=== PATIENT | male | born 1950 | race Caucasian/White ===

== ENCOUNTER 2016-07-31 23:01 | Inpatient (IN) | payer OTHER, MEDICARE ==
[~2016-07-31] VITALS: Ht 172.7 cm; Wt 111.1 kg
[~2016-07-31 23:01] MED LIST: ASPIRIN EC81 M1 PO; COLACE100 M1 PO; CYMBALTA60 M1 PO; DIGOXIN250 MCG PO; HUMULIN 70100 UNIT/2 SC; LASIX40 M1 PO; LEVOTHYROXINE100 MC1 PO; LEVOTHYROXINE88 MCG PO; METFORMIN HCL1000 M2 PO; NEURONTIN100 M1 PO; PRAVACHOL80 M1 PO; PRINIVIL5 M1 PO; SENNA8.6 M3 PO; TOPROL XL200 M1 PO; XARELTO20 M2 PO
--- NOTE | 2016-07-31 23:41 | ED AMS/SEIZURE/WEAK/DIZZY ---
History of Present Illness General Chief Complaint: General Adult Stated Complaint: BIBA FOR EVAL GENERAL WEAKNESS Source: patient Exam Limitations: no limitations Vital Signs & Intake/Output Vital Signs & Intake/Output Vital Signs Date Time Temp Pulse Resp B/P Pulse O2 O2 Flow FiO2 Ox Delivery Rate 07/31 2321 96.8 74 18 133/72 100 Room Air ED Intake and Output 08/01 0000 07/31 1200 Intake Total 0 Output Total Balance 0 Intake, Oral 0 Patient 185 lb Weight Allergies Coded Allergies: NO KNOWN ALLERGIES (08/01/16) Reconcile Medications Aspirin (Ecotrin*) 81 MG TABLET.DR 1 TAB PO DAILY HEART HEALTH (Reported) Atorvastatin Calcium 80 MG TABLET 80 MG PO 1700 Hyperlipidemia Digoxin 250 MCG TABLET 1 TAB PO DAILY HEART (Reported) Docusate Sodium (Colace) 100 MG CAPSULE 1 CAP PO DAILY GI (Reported) Duloxetine HCl (Cymbalta) 60 MG CAPSULE.DR 1 CAP PO DAILY MENTAL HEALTH ( Reported) Furosemide (Lasix) 40 MG TABLET 1 TAB PO DAILY DIURETIC (Reported) Gabapentin (Neurontin) 100 MG CAPSULE 1 CAP PO TID NEUROPATHY (Reported) Insulin Aspart (Novolog) 100 UNIT/ML VIAL 0 UNITS SC TIDAC/HS blood sugars BEFORE MEALS Blood Insulin Sugar Units <80 0 81-150 10 151-200 12 201-250 14 251-300 16 301-350 18 351-400 20 >400 22 units and Call Doctor AT BEDTIME Blood Insulin Sugar Units <80 0 81-100 0 100 - 200 0 201-250 0 251-300 2 301-350 3 351-400 4 >400 5 units and Call Doctor Insulin Detemir (Levemir) 100 UNIT/ML VIAL 32 UNITS SC BID blood sugars Levothyroxine Sodium 100 MCG TABLET 1 TAB PO DAILY AC THYROID (Reported) Levothyroxine Sodium 88 MCG TABLET 1 TAB PO DAILY AC THYROID (Reported) Lisinopril (Prinivil) 5 MG TABLET 1 TAB PO DAILY BP (Reported) Metoprolol Succinate (Toprol XL) 200 MG TAB.ER.24H 1.5 TAB PO DAILY HEART ( Reported) Rivaroxaban (Xarelto) 20 MG TABLET 1 TAB PO DAILY BLOOD THINNER (Reported) with food Saxagliptin HCl/Metformin HCl (Kombiglyze XR 5-1,000 MG Tab) 5 MG-1,000 MG TBMP.24HR 1 TAB PO DAILY DIABETES MELLITUS (Reported) Sennosides (Senna) 8.6 MG TABLET 1 TAB PO DAILY CONSTIPATION (Reported) Triage Note: PT BIBA FROM HOME WITH COMPLAINTS OF WEAKNESS AND NAUSEA. PER PT, HE EXPERIENCED NAUSEA BEFORE DINNER AND SOME DRY HEAVE. PT STATES THAT HE DECIDED TO GO TO SLEEP AND WHEN HE WOKE UP HE HAD SOME NUMBNESS TO THE LEFT SIDE OF FACE, L ARMS AND L LEGS. PT HAS HISTORY OF STROKE. NO FACIAL DROOP NOTED, NO DRIFT NOTED. PT'S SPEECH IS SLIGHTLY SLURRED FROM PREVIOUS STROKE, PT STATES THIS IS BASELINE. PT HAS WOUND TO LEFT PONTER FINGER THAT APPEARS BLACK IN COLOR AND DISCOLORATION TO BLE, PT STATES THIS IS FROM HIS DIABETES. PT ALSO RELAYS THAT HE HAD A HARD TIME WALKING TO AMBULANCE AND HE IS USUALLY INDEPENDENT AND AMBULATORY AT BASELINE. Triage Nurses Notes Reviewed? yes HPI: Patient presents for evaluation of sudden onset of spinning dizziness that occurred at about 645 this evening while at home having dinner. He states he had an associated nausea and some mild vomiting. He states he went over to the couch and then managed to fall asleep for about an hour. He then got up at about 840 and noted that upon awakening his left arm left leg and left side of his face felt like it had fallen asleep. At that point he was too weak to stand or ambulate. He has a history of a prior CVA and diabetes. He also takes XARALTO for atrial fibrillation. Past History Travel History Traveled to [place] past 21 day No Medical History Any Pertinent Medical History? see below for history Neurological: CVA EENT: NONE Cardiovascular: AFIB, hypertension, hyperlipidemia Respiratory: NONE Gastrointestinal: NONE Hepatic: NONE Renal: NONE Musculoskeletal: NONE Psychiatric: NONE Endocrine: diabetes, hypothyroidism Blood Disorders: NONE Cancer(s): NONE PERSONAL CARE AIDE/Reproductive: NONE Surgical History Surgical History: N Psychosocial History What is your primary language Bruneian Tobacco Use: Quit >30 days ago ETOH Use: denies use Illicit Drug Use: denies illicit drug use Family History Hx Contributory? No Review of Systems Review of Systems Constitutional: Reports: no symptoms. EENTM: Reports: no symptoms. Respiratory: Reports: no symptoms. Cardiovascular: Reports: no symptoms. GI: Reports: no symptoms. Genitourinary: Reports: no symptoms. Musculoskeletal: Reports: no symptoms. Skin: Reports: no symptoms. Neurological/Psychological: Reports: no symptoms. Hematologic/Endocrine: Reports: no symptoms. Immunologic/Allergic: Reports: no symptoms. All Other Systems: Reviewed and Negative Physical Exam Physical Exam General Appearance: see below Comments: Gen.: Well-nourished, well-developed, no acute respiratory distress. Head: Normocephalic, atraumatic. Eyes: Normal inspection bilaterally, PERRLA, EOMI, rotational nystagmus noted on left gaze, no visual field deficits Ears: Normal inspection bilaterally Nose: Normal inspection Throat/mouth : Moist mucosa Neck: Supple, full range of motion, no goiter, no carotid bruits Heart: Slightly irregular rate and rhythm, no murmurs rubs or gallops Lungs: Clear to auscultation bilaterally with normal air entry Chest: Nontender Back: Normal range of motion Abdomen: Soft, nontender, nondistended, normal bowel sounds Extremities: Normal range of motion grossly, equal radial pulses, no cyanosis clubbing or edema Neurologic: Cranial nerves 2 through 12 intact, speech is mildly dysarthric ( patient is edentulous), dysmetria of the left arm and leg, facial sensation intact. Skin: warm and dry Psychiatric: Calm, cooperative, no apparent delusions or hallucinations Core Measures ACS in differential dx? No CVA/TIA Diagnosis: Yes Severe Sepsis Present: No Septic Shock Present: No Bedside Dysphagia Screen Bedside Swallow Eval Done: Yes Result of Evaluation: Pass Progress Differential Diagnosis: CVA/stroke, vertigo Plan of Care: Orders Procedure Date/time Status Telemetry/General Production Laborer 08/01 0025 Active PARTIAL THROMBOPLASTIN TIME 08/01 2339 Complete PROTHROMBIN TIME 08/01 2339 Complete COMPREHENSIVE METABOLIC PANEL 08/01 2339 Complete CBC WITHOUT DIFFERENTIAL 08/01 2339 Complete EKG 08/01 2339 Active Laboratory Tests 08/01/16 0012: Anion Gap 11, Estimated GFR > 60, BUN/Creatinine Ratio 20.0, Glucose 351 H, Calcium 9.1, Total Bilirubin 0.7, AST 71 H, ALT 59, Alkaline Phosphatase 96, Total Protein 7.8, Albumin 3.5, Globulin 4.3 H, Albumin/Globulin Ratio 0.8 L, PT 16.2 H, INR 1.55 H, APTT 37, CBC w Diff NO MAN DIFF REQ, RBC 5.36, MCV 86.3 , MCH 28.8, RDW 15.1 H, MPV 8.2, Gran % 78.8 H, Lymphocytes % 15.8 L, Monocytes % 5.0, Eosinophils % 0.1, Basophils % 0.3, Absolute Granulocytes 6.7 H, Absolute Lymphocytes 1.3, Absolute Monocytes 0.4, Absolute Eosinophils 0, Absolute Basophils 0, PUBS MCHC 33.3 Diagnostic Imaging: Discussed w/RAD: CT Scan. Initial ED EKG: rate (63), AFIB Prior EKG: changed (nsr on prior) Rhythm Strip: atrial fibrillation Departure Departure Disposition: STILL A PATIENT Condition: Stable Clinical Impression Primary Impression: CVA (cerebral vascular accident) Qualifiers: CVA mechanism: embolism Precerebral and cerebral artery: unspecified cerebral artery Qualified Code: I63.40 - Cerebral infarction due to embolism of unspecified cerebral artery Referrals: IMAN MARQUEZ MD (PCP/Family) Departure Forms: Customer Survey General Discharge Information Prescriptions: Current Visit Scripts Atorvastatin Calcium 80 MG PO 1700 #60 TAB Insulin Aspart (Novolog) 0 UNITS SC TIDAC/HS #10 VIAL BEFORE MEALS Blood Insulin Sugar Units <80 0 81-150 10 151-200 12 201-250 14 251-300 16 301-350 18 351-400 20 >400 22 units and Call Doctor AT BEDTIME Blood Insulin Sugar Units <80 0 81-100 0 100 - 200 0 201-250 0 251-300 2 301-350 3 351-400 4 >400 5 units and Call Doctor Insulin Detemir (Levemir) 32 UNITS SC BID #30 VIAL Admission Note Spoke With: MARIBEL HUNTER MD Documentation of Exam: Documentation of any treatments & extenuating circumstances including Concerns Regarding Discharge (functional status, medication knowledge or non-compliance, living conditions, etc.) that warrant an admission rather than observation: Patient appears to have suffered a left sided stroke likely as a result of a paroxysm of atrial fibrillation despite current treatment with XARALTO. The patient is at considerable risk of long-term disability based on his presentation (patient has discoordination of his left arm and leg). As a result of a prior CVA he has lost considerable use of his right hand and arm (his dominant extremity). He is now losing the coordination of his left side as well. I feel he can not be treated as an outpatient given the overall disability of his current CVA. I feel he would have great difficulty in compliance with outpatient treatment and would be at great risk of falling with subsequent injury. I feel he now requires hospitalization for continuous cardiac monitoring given the presence of atrial fibrillation along with neurology consultation and medication adjustments. Any potentially reversible causes of CVA should also be investigated and treated accordingly. Given the patient's discoordination I feel he also should have a physical therapy consultation. I believe it is very likely the patient will require short-term rehabilitation. I feel he therefore will require a multiple day hospitalization.
[2016-08-01 00:22] LABS: ABSOLUTE BASOPHIL COUNT 0 /CUMM (0.0-0.2); ABSOLUTE EOSINOPHIL COUNT 0 /CUMM (0.0-0.7); ABSOLUTE GRANULOCYTE CT 6.7 /CUMM (1.4-6.5); ABSOLUTE LYMPH COUNT 1.3 /CUMM (1.2-3.4); ABSOLUTE MONOCYTE COUNT 0.4 /CUMM (0.10-0.60); BASOPHIL % 0.3 % (0.0-2.0); EOSINOPHIL % 0.1 % (0-5); HEMATOCRIT 46.3 % (42-52); MEAN CORPUSCULAR HGB 28.8 PG (27.0-31.0); MEAN CORPUSCULAR HGB CONC 33.3 G/DL (33.0-37.0); MEAN CORPUSCULAR VOLUME 86.3 FL (80.0-94.0); MEAN PLATELET VOLUME 8.2 FL (7.4-10.4); PLATELET COUNT 229 /CUMM (130-400); RBC DISTRIBUTION WIDTH 15.1 % (11.5-14.5); RED BLOOD CELL CT 5.36 /CUMM (4.70-6.10); WHITE BLOOD CELL COUNT 8.4 /CUMM (4.8-10.8)
[2016-08-01 00:23] LABS: GRANULOCYTE % 78.8 % (42.2-75.2)
[2016-08-01 00:31] LABS: PT 16.2 SEC (9.4-12.5); PTT 37 SEC (25-37)
--- NOTE | 2016-08-01 01:02 | CT SCAN REPORT ---
EXAMINATION: CT HEAD WITHOUT CONTRAST CLINICAL INFORMATION: Left-sided weakness. Numbness. History of prior stroke. COMPARISON: CT head 02/21/2015 TECHNIQUE: Contiguous axial imaging was performed from the skull base to vertex without intravenous administration of contrast. DLP: 672.25 mGy-cm FINDINGS: There is an old infarct with chronic encephalomalacia in the left frontal lobe. This is unchanged since prior exam. There is no evidence of acute intracranial hemorrhage or territorial infarction. No abnormal mass effect or midline shift is seen. Bashir to white matter differentiation is well preserved. No extra-axial fluid collections are identified. There is atrophy with prominence of the ventricles and the sulci and hypodensity of the periventricular white matter due to chronic small vessel ischemic disease. There is vascular calcifications of the internal carotid arteries bilaterally. The osseous structures and soft tissues are normal. Retention cyst inferior left maxillary sinus. Mastoid air cells and middle ear cavities are normally aerated. IMPRESSION: No acute intracranial pathology. Chronic left frontal lobe infarct.
--- NOTE | 2016-08-01 01:34 | History & Physical ---
See Addendum YADI CORRALES,RUBIO 08/01/16 0134: General Information and HPI MD Statement: I have seen and personally examined ASTER MCCURDY and documented this H&P. The patient is a 66 year old M who presented with a patient stated chief complaint of [left sided weakness]. Source of Information: patient Exam Limitations: no limitations History of Present Illness: Patient is a 66 year old male with a PMH of CVA in 2013, atrial fibrillation on Xarelto, hypertension, hyperlipidemia, diabetes, hypothyroidism who was BIBA after he noticed left sided numbness and weakness of the arm and leg and left side facial droop. Patient reports earlier in the day at around noon he started to feel dizzy and feeling the room was spinning around his head, also felt hot flashes and feeling warm and sweaty, accompanied by mild nausea and one episode of having dry heaves. Patient slept for a couple hours, whem woke up noticed the left side of the body was numb and weak including face, arm and leg. Patient asked help from his mother (he lives with her), who called 911 and brought him to the ED. patient also reports that he feels when he moves his left arm towards the face it hits his face before he anticipates it, as if he miscalsulated the distance. Patient also reports that his his speech is slurred , he denies having difficulty finding words. Patient denies loss of consciousness, fall, changes in the vision, headache, chest pain, palpitation, shortness of breath. Patient reports he has been feeling less stable during the past couple of weeks and has a wobbly gait, denies losing balance and sweating to the sides. Of note, patient has a history of CVA in September 2013 after which she reports having slurred speech and right sided arm weakness. His his speech became completely normal, however he still has residual weakness on the right arm. Allergies/Medications Allergies: Coded Allergies: NO KNOWN ALLERGIES (08/01/16) Home Med list Aspirin (Ecotrin*) 81 MG TABLET.DR 1 TAB PO DAILY HEART HEALTH (Reported) Digoxin 250 MCG TABLET 1 TAB PO DAILY HEART (Reported) Docusate Sodium (Colace) 100 MG CAPSULE 1 CAP PO DAILY GI (Reported) Duloxetine HCl (Cymbalta) 60 MG CAPSULE.DR 1 CAP PO DAILY MENTAL HEALTH ( Reported) Furosemide (Lasix) 40 MG TABLET 1 TAB PO DAILY DIURETIC (Reported) Gabapentin (Neurontin) 100 MG CAPSULE 1 CAP PO TID NEUROPATHY (Reported) Insulin NPH Hum/Reg Insulin Hm (Humulin 70/30 Kwikpen) 100 UNIT/ML (70-30) INSULN.PEN 100 U SC BID DIABETES (Reported) Levothyroxine Sodium 100 MCG TABLET 1 TAB PO DAILY AC THYROID (Reported) Levothyroxine Sodium 88 MCG TABLET 1 TAB PO DAILY AC THYROID (Reported) Lisinopril (Prinivil) 5 MG TABLET 1 TAB PO DAILY BP (Reported) Metformin HCl (Metformin HCl ER) 1,000 MG TAB.ER.24 1 TAB PO DAILY DIABETES ( Reported) Metoprolol Succinate (Toprol XL) 200 MG TAB.ER.24H 1.5 TAB PO DAILY HEART ( Reported) Pravastatin Sodium (Pravachol) 80 MG TABLET 1 TAB PO DAILY CHOLESTEROL ( Reported) Rivaroxaban (Xarelto) 20 MG TABLET 1 TAB PO DAILY BLOOD THINNER (Reported) with food Sennosides (Senna) (Unknown Strength) TABLET (Unknown Dose) PO DAILY GI ( Reported) Past History Travel History Traveled to [place] past 21 day No Medical History Neurological: CVA EENT: NONE Cardiovascular: AFIB, hypertension, hyperlipidemia Respiratory: NONE Gastrointestinal: NONE Hepatic: NONE Renal: NONE Musculoskeletal: NONE Psychiatric: NONE Endocrine: diabetes, hypothyroidism Blood Disorders: NONE Cancer(s): NONE STAFF ANESTHETIST/Reproductive: NONE Surgical History Surgical History: N Past Family/Social History Family History Relations & Conditions if any MOTHER FH: COPD (chronic obstructive pulmonary disease) FATHER FH: diabetes mellitus FH: HTN (hypertension) Psychosocial History Smoking Status: Never Smoked ETOH Use: denies use, occasional use Illicit Drug Use: denies illicit drug use Functional Ability ADLs Independent: dressing, eating, toileting, bathing. Ambulation: independent Review of Systems Review of Systems Constitutional: Reports: weakness. Denies: chills, diaphoresis, fever. EENTM: Reports: ear pain (left side). Denies: double vision, visual changes, ear discharge, hearing changes, throat pain. Cardiovascular: Denies: chest pain, palpitations, peripheral edema, syncope. Respiratory: Denies: cough, short of breath, sputum production. GI: Reports: nausea (dry heaves), changes in stool (more firm stool past 2 weeks). Denies: abdominal pain, bloody stool, vomiting. Genitourinary: Reports: frequency. Denies: dysuria, hematuria, urgency. Musculoskeletal: Denies: back pain, joint pain. Skin: Reports: dryness, lesions (lower leg skin discolortion). Neurological/Psychological: Reports: numbness, paresthesia, weakness. Denies: headache, tremors. Hematologic/Endocrine: Reports: polyuria, polydipsia. Denies: bruising, bleeding. Exam & Diagnostic Data Last 24 Hrs of Vital Signs/I&O Vital Signs Date Time Temp Pulse Resp B/P Pulse O2 O2 Flow FiO2 Ox Delivery Rate 08/01 0457 98.1 67 20 128/60 97 Room Air 08/01 0347 97.2 72 16 138/72 98 Room Air 08/01 0248 97.0 76 20 134/71 99 Room Air 07/31 2321 96.8 74 18 133/72 100 Room Air Intake & Output 08/01 0800 08/01 0000 07/31 1600 Intake Total 0 Output Total Balance 0 Intake, Oral 0 Patient 83.915 kg Weight Physical Exam General Appearance Alert, Oriented X3, Cooperative, No Acute Distress Skin skin hyperkeratosis and dryness generally. there are also hyperpigmentations of venous stasis on anterior aspects of both lower legs., there is an area of necrotic skin lesion at the tip of the left index finger HEENT Atraumatic, EOMI, Mucous Membr. moist/pink, pupils equal and reactive to light Neck Supple, No JVD, +2 Carotid Pulse wo Bruit Cardiovascular Normal S1, Normal S2, No Murmurs, irregular Lungs Clear to Auscultation, Normal Air Movement Abdomen Normal Bowel Sounds, Soft, No Tenderness Neurological Sensation Intact, Cranial Nerves 3-12 NL, there is 4/5 forces on the right upper extremity and 5/5 strength on the left upper extremity. forces on the lower extremities: 5/5 on the right side and 4/5 on the left side., finger to nose test on the left side reveals dysmetria. heel to murguia test is normal on both sides, pronator drift positive on the left side., fluent and comprehensible speech., patient passed the bedside swallow evaluation Extremities No Edema, Normal Pulses, No Tenderness/Swelling Vascular Pulses Symmetrical Last 24 Hrs of Labs/Rashi: Laboratory Tests 08/01/16 0012: Anion Gap 11, Estimated GFR > 60, BUN/Creatinine Ratio 20.0, Glucose 351 H, Hemoglobin A1c Pending, Calcium 9.1, Magnesium 3.1 H, Total Bilirubin 0.7, AST 71 H, ALT 59, Alkaline Phosphatase 96, Troponin I < 0.01, Total Protein 7.8, Albumin 3.5, Globulin 4.3 H, Albumin/Globulin Ratio 0.8 L, TSH 1.770, Free T4 1.89, PT 16.2 H, INR 1.55 H, APTT 37, CBC w Diff NO MAN DIFF REQ, RBC 5.36, MCV 86.3, MCH 28.8, RDW 15.1 H, MPV 8.2, Gran % 78.8 H, Lymphocytes % 15.8 L, Monocytes % 5.0, Eosinophils % 0.1, Basophils % 0.3, Absolute Granulocytes 6.7 H, Absolute Lymphocytes 1.3, Absolute Monocytes 0.4, Absolute Eosinophils 0, Absolute Basophils 0, PUBS MCHC 33.3 Assessment/Plan Assessment: Patient is a 66-year-old gentleman with a PMH of CVA in 2013 with residual weakness of the right arm, atrial fibrillation on Xarelto, hypertension, hyperlipidemia, diabetes, hypothyroidism who is BIBA after feeling weakness and numbness on the left side of the body that started around 8:40 PM on 07/31/2016, accompanied by unsteady gait and impaired coordination on the left arm. CT scan of the head in the ED was negative for intracranial pathology. However and exam patient has dystaxic and assess and dysmetria on the left upper extremity as well as new weakness in the left lower extremity. No dysarthria noted. PLEASE CONFIRM CMR IN AM, patient unsure about the those, pharmacy at [facility] need to be called. Problem list and plan: Possible ischemis stroke or a TIA * Neurochecks every 4-6 hours * Telemetry monitoring * Continue aspirin * High-dose statin, atorvastatin 40 mg * Metoprolol half of his home dose, Hold antihypertensives (goal BP 200/105, current BP 128/60, started gentle hydration with normal saline 75 mL per hour) * Carotid Doppler ultrasound in the morning * Swallow evaluation in the morning * OT and PT consult * Neurology consult * Echocardiogram * MRI of the brain Atrial fibrillation no history of [place]. * check troponin * echocardiogram * consider cardiology consult * continue Xarelto, continue metoprolol at half dose * continue digoxin, will check digoxin level Diabetes On Insulin Humulin 80 units of 70/30 BID, Metformin, Toujeo solostar (28 units at bedtime), Kombiglyze * Started novolog insulin SS * levemir 20 units at bedtime * HbA1C * Endocrinology consult placed for am Hypothyroidism * states that he is on 0.1 and 0.088 levothyroxine, please confirm this in the morning. * check TSH Diet * Patient passed bedside swallow eval * Consistent carbohydrate 3 Pain * mild pain pathway DVT prophylaxis * Patient is on Xarelto, continued at home dose FULL CODE As Ranked By This Provider Problem List: 1. CVA (cerebral vascular accident) Qualifiers CVA mechanism: embolism Precerebral and cerebral artery: unspecified cerebral artery Qualified Code: I63.40 - Cerebral infarction due to embolism of unspecified cerebral artery 2. TIA (transient ischemic attack) Core Measures/Miscellaneous Acute Coronary Syndrome ACS Diagnosis: No Cerebrovascular Accident CVA/TIA Diagnosis: Yes Congestive Heart Failure CHF Diagnosis: No Venous Thromboembolism VTE Risk Factors: Acute medical illness, Age > 40 No [facility] VTE prophylaxis d/t: No contraindications No VTE Pharm Prophylaxis d/t: No contraindications VTE Diagnosis: No VTE Type: NONE VTE Confirmed by (Test): NONE Severe Sepsis Severe Sepsis Present: No Septic Shock Septic Shock Present: No Miscellaneous Documentation Attending Case Discussed With: MARIBEL HUNTER MD Primary Care Physician: IMAN MARQUEZ MD Patient sees these Specialists Dr. Alanis, neurologist (have not followed up for a long time) Dr. Ross, cardiology Level of Patient Care: Telemetry VICKY ORO 08/01/16 0329: Resident Review Statement Resident Statement: examined this patient, discussed with equine intern, agreed with equine intern, reviewed EMR data (avail), discussed with nursing, reviewed images, amended to note Other Findings: This is a 66 year old male with past medical history of hypertension, hyperlipidemia, atrial fibrillation on Xarelto, diabetes mellitus, hypothyroidism, CVA 2013 with residual right upper arm weakness. Who was BIBA after he noticed left sided weakness of the arm and leg and left side facial droop. Patient also reports before his symptoms start that he felt dizzy and he felt that the room was spinning around patient stated that it was around 6:45 PM after that he went to take a nap for 1-2 hour and when he wake up around 8 8:30 PM he started to complain of left-sided weakness and numbness starting from his head up to his left lower extremity. Patient reports missing his Xarelto dose. On physical examination patient had positive pronation drift. Patient passed the bedside swallowing evaluation. Physical examination, imaging and Lab as above. Assessment: -Ischemic CVA/TIA: Recommend the patient underlying history of atrial fibrillation and old CVA, with his current presentation, patient most likely has another CVA versus TIA patient will need further evaluation by neurologist and MRI imaging. Plan: -Admit patient to telemetry floor -Vitals every shift, NIH Q4hr, fall precaution -Continue aspirin and Xarelto -MRI of the head, neurology consultation -Echocardiogram, carotid ultrasound -Check digoxin level, TSH, free T4 -Start the patient on 75 mL per hour of normal saline -Allow permissive hypertension, hold the patient home medication of Lasix will restart the patient metoprolol with half the dose tomorrow. -Accu-Chek, diabetic diet, insulin sliding scale +20 units of Levemir QPM. -Swallowing evaluation, physical therapy consultation -Please confirm the patient home medication -Pain pathway -DVT Prophylaxis on Xarelto -Full code DALEMARIBEL AGUIRRE 08/01/16 0525: Attending MD Review Statement Attending Statement Attending MD Statement: examined this patient, discuss w/resident/PA/CREDIT REPORTING CLERK, agreed w/resident/PA/CREDIT REPORTING CLERK, reviewed EMR data (avail), reviewed images, amended to note Attending Assessment/Plan: CC: Left face, hand, leg numbness PMH: CVA, A. fib on Xeralto, HTN, HLD, DM, hypothyroidism Patient describes an episode of dizziness, vertigo before his dinner, he ate his dinner and took a nap on the couch for one and half hours, after that he woke up with numbness on left side of the face, left upper and lower extremity. Patient described this as that part of the body is asleep, so he called EMS. He denies any headache, LOC, palpitations, chest pain, shortness of breath, cough, facial droop, dropping things from his hand. When EMS came to pick him up, he could not stand properly and was wobbly and unstable gait. He also noticed lack of coordination in his left hand. Patient has some slurred speech, right upper extremity residual weakness from his previous stroke. Denies any recent cardiac workup, he was admitted for stroke and sent to [facility]. Vitals: Afebrile, pulse 70s, RR 18, blood pressure 133/72, saturating well on room air. On examination: a O 3, comprehension intact follows instruction, no acute distress, neck supple, no JVD, no lymphadenopathy. He has diffuse chronic skin changes or dry skin throughout and stasis dermatitis bilateral lower extremity. Neurological exam: Pupils equal round reactive bilaterally, cranial nerves intact, no facial droop. ?Pronator drift on left side, strength otherwise 5/5 left upper extremity and left lower extremity, 4/5 right upper extremity. Sensation intact, past-pointing on left upper extremity, when tried to stand up patient could not, the fused secondary to weakness on left lower extremity. Gait could not be assessed. CVS: S1-S2, irregular. RS: Clear to auscultate bilaterally. Abdomen: Obese, soft, NT, bowel sounds present. No obvious pedal edema. Labs: C BC, BMP unremarkable AST 71, troponin less than 0.01, INR 1.55. CT head:No acute intracranial pathology. Chronic left frontal lobe infarct. EKG: A. fib, A and P #1 left-sided numbness: Suspected CVA, ?stroke. Patient has multiple comorbidities and history of previous CVA, A. fib. Patient states that he may have skipped a dose of Xeralto yesterday. ?pronator drift on the left side, past pointing on the left side. Sensation intact. Given that patient on anticoagulation, and numbness happened in his sleep he is not a candidate for thrombolysis, consult on-call neurology about stroke, neurology was not informed from ER. Admit on telemetry, Continue permissive hypertension, hold antihypertensive, decreased the dose of metoprolol for now, continue gentle hydration, aspirin, atorvastatin. Neurochecks every 4-6 hours, Bedside swallow evaluation now, official swallow evaluation in a.m., MRI tomorrow a.m., carotid Doppler, 2-D echo, telemetry monitoring, OT PT evaluation. #2 DM: Insulin-dependent patient takes 80 units 70/30 twice a day and 28 units long-acting insulin at bedtime, continue sliding scale insulin, 20 units subcutaneous Levemir now, consult endocrine in a.m. #3 A. fib: Rate controlled, continues Xerato and metoprolol at a lower dose for permissive hypertension, continue digoxin, check digoxin level. #4 hypothyroidism: Patient on 2 different doses of Synthroid, needs to confirm this in a.m. 100 g versus 88 g. #5 DVT prophylaxis: patient on Xeralto
[2016-08-01 04:57] VITALS: BP 128/60
--- NOTE | 2016-08-01 05:26 | Admission Certification ---
Admission Certification Certification Statement - As attending physician, I certify that at the time of - admission, based on clinical presentation, severity of - symptoms, need for further diagnostic testing and - therapeutic interventions, and risk of adverse outcomes - without in-hospital treatment, in my clinical assessment, - this patient requires an acute hospital stay for a minimum - of two nights or longer. I have also considered psychsocial - factors such as support system, advanced age, financial - issues, cognitive issues, and failed out-patient treatments, - past re-admission history, safety of patient, and lack of - compliance as applicable. Specific rationale supporting this admission is: Suspected CVA
--- NOTE | 2016-08-01 07:00 | Event Note ---
Event Note Event Note: We put a consult neurology at 5 am this morning, through answering service for the optical effects line up person neurology; [phone]. I was told by the batch plant operator that Dr. Chadwick ( and not Dr. Ag, whose name is appearing in our tracker) is the neurology optical effects line up person today. I called the number again to talk with Dr. Chadwick for the patient, I was provided with Dr. Reginald Chadwick's office number [phone], the orthopedic assistant attempted to connect me to Dr. Chadwick, but Dr. Chadwick told her that he is not covering for [employer] and did not milk pickup truck driver the phone. We checked [facility] intranet for the schedule for optical effects line up person neurology as well and there was no information there. Morning team is made aware of the situation.
[2016-08-01 08:30] LABS: ABSOLUTE BASOPHIL COUNT 0 /CUMM (0.0-0.2); ABSOLUTE EOSINOPHIL COUNT 0 /CUMM (0.0-0.7); ABSOLUTE GRANULOCYTE CT 7.2 /CUMM (1.4-6.5); ABSOLUTE LYMPH COUNT 2.2 /CUMM (1.2-3.4); ABSOLUTE MONOCYTE COUNT 0.6 /CUMM (0.10-0.60); BASOPHIL % 0.3 % (0.0-2.0); EOSINOPHIL % 0.2 % (0-5); GRANULOCYTE % 71.6 % (42.2-75.2); HEMATOCRIT 42.3 % (42-52); MEAN CORPUSCULAR HGB 28.5 PG (27.0-31.0); MEAN CORPUSCULAR HGB CONC 33.5 G/DL (33.0-37.0); MEAN CORPUSCULAR VOLUME 85.1 FL (80.0-94.0); MEAN PLATELET VOLUME 8.4 FL (7.4-10.4); PLATELET COUNT 230 /CUMM (130-400); RBC DISTRIBUTION WIDTH 15.3 % (11.5-14.5); RED BLOOD CELL CT 4.97 /CUMM (4.70-6.10); WHITE BLOOD CELL COUNT 10.1 /CUMM (4.8-10.8)
[2016-08-01 08:57] VITALS: BP 138/68
--- NOTE | 2016-08-01 12:30 | Cons- Endocrinology ---
General Information and HPI Consulting Request Date of Consult: 08/01/16 Requested By: medical team Reason for Consult: management of DM type 2 Source of Information: patient, old records Exam Limitations: no limitations History of Present Illness: Patient is a 66 year old male with a PMH of CVA in 2013, atrial fibrillation on Xarelto, hypertension, hyperlipidemia, diabetes type 2 noncompliance with recent of HbA1c of > 12%, hypothyroidism who was BIBA after he noticed left sided numbness and weakness of the arm and leg. His glucose level has been 351, 294, 296 and 304. At home, he was on Toujeo 28 units daily at bedtime, Humulin 70/30 mix 80 units twice a day with breakfast and with dinner. In addition, he was on Komiglyze. However, he wasn't compliance with Humulin 70/30 and diet. Allergies/Medications Allergies: Coded Allergies: NO KNOWN ALLERGIES (08/01/16) Home Med List: Aspirin (Ecotrin*) 81 MG TABLET.DR 1 TAB PO DAILY HEART HEALTH (Reported) Digoxin 250 MCG TABLET 1 TAB PO DAILY HEART (Reported) Docusate Sodium (Colace) 100 MG CAPSULE 1 CAP PO DAILY GI (Reported) Duloxetine HCl (Cymbalta) 60 MG CAPSULE.DR 1 CAP PO DAILY MENTAL HEALTH ( Reported) Furosemide (Lasix) 40 MG TABLET 1 TAB PO DAILY DIURETIC (Reported) Gabapentin (Neurontin) 100 MG CAPSULE 1 CAP PO TID NEUROPATHY (Reported) Insulin NPH Hum/Reg Insulin Hm (Humulin 70/30 Kwikpen) 100 UNIT/ML (70-30) INSULN.PEN 100 U SC BID DIABETES (Reported) Levothyroxine Sodium 100 MCG TABLET 1 TAB PO DAILY AC THYROID (Reported) Levothyroxine Sodium 88 MCG TABLET 1 TAB PO DAILY AC THYROID (Reported) Lisinopril (Prinivil) 5 MG TABLET 1 TAB PO DAILY BP (Reported) Metformin HCl (Metformin HCl ER) 1,000 MG TAB.ER.24 1 TAB PO DAILY DIABETES ( Reported) Metoprolol Succinate (Toprol XL) 200 MG TAB.ER.24H 1.5 TAB PO DAILY HEART ( Reported) Pravastatin Sodium (Pravachol) 80 MG TABLET 1 TAB PO DAILY CHOLESTEROL ( Reported) Rivaroxaban (Xarelto) 20 MG TABLET 1 TAB PO DAILY BLOOD THINNER (Reported) with food Sennosides (Senna) (Unknown Strength) TABLET (Unknown Dose) PO DAILY GI ( Reported) Review of Systems Review of Systems Constitutional: Reports: see HPI. Cardiovascular: Denies: chest pain. Respiratory: Denies: short of breath. GI: Denies: abdominal pain. Neurological/Psychological: Reports: weakness (left sided body). Past History Travel History Traveled to [place] past 21 day No Medical History Neurological: CVA EENT: NONE Cardiovascular: AFIB, hypertension, hyperlipidemia Respiratory: obstructive sleep apnea Gastrointestinal: NONE Hepatic: NONE Renal: NONE Musculoskeletal: NONE Psychiatric: NONE Endocrine: diabetes, hypothyroidism Blood Disorders: NONE Cancer(s): NONE CAVALRY SCOUT/Reproductive: NONE Surgical History Surgical History: none Family History Relations & Conditions If Any: MOTHER FH: COPD (chronic obstructive pulmonary disease) FATHER FH: diabetes mellitus FH: HTN (hypertension) Psychosocial History Where Do You Live? Home Services at Home: None Smoking Status: Never Smoked ETOH Use: denies use, occasional use Illicit Drug Use: denies illicit drug use Functional Ability ADLs Independent: dressing, eating, toileting, bathing. Ambulation: independent Exam & Diagnostic Data Last 24 Hrs of Vital Signs/I&O Vital Signs Date Time Temp Pulse Resp B/P Pulse O2 O2 Flow FiO2 Ox Delivery Rate 08/01 1049 77 138/68 08/01 1049 77 138/68 08/01 0857 97.6 77 20 138/68 96 Room Air 08/01 0543 96 Room Air 08/01 0457 98.1 67 20 128/60 97 Room Air 08/01 0347 97.2 72 16 138/72 98 Room Air 08/01 0248 97.0 76 20 134/71 99 Room Air 07/31 2321 96.8 74 18 133/72 100 Room Air Intake & Output 08/01 1600 08/01 0800 08/01 0000 Intake Total 120 0 Output Total 275 Balance -155 0 Intake, Oral 120 0 Output, 50 Emesis Output, Urine 225 Patient 245 lb 185 lb Weight Physical Exam General Appearance: no apparent distress Neck: normal inspection Respiratory: lungs clear Cardiovascular: irregularly irregular Gastrointestinal: distention Extremities: no edema Neurologic/Psych: motor weakness, motor/sensory deficits (left side of body) Labs/Rashi Results: Laboratory Tests 08/01 08/01 0650 0012 Chemistry Sodium (137 - 145 mmol/L) 135 L 137 Potassium (3.5 - 5.1 mmol/L) 4.6 4.4 Chloride (98 - 107 mmol/L) 103 100 Carbon Dioxide (22 - 30 mmol/L) 25 26 Anion Gap (5 - 16) 8 11 BUN (9 - 20 mg/dL) 14 14 Creatinine (0.7 - 1.2 mg/dL) 0.6 L 0.7 Estimated GFR (>60 ml/min) > 60 > 60 BUN/Creatinine Ratio (7 - 25 %) 23.3 20.0 Glucose (65 - 99 mg/dL) 351 H Hemoglobin A1c (4.2 - 5.8 %) Pending Calcium (8.4 - 10.2 mg/dL) 9.1 Magnesium (1.6 - 2.3 mg/dL) 3.1 H Total Bilirubin (0.2 - 1.3 mg/dL) 0.7 AST (17 - 59 U/L) 71 H ALT (21 - 72 U/L) 59 Alkaline Phosphatase (< 127 U/L) 96 Troponin I (<0.11 ng/ml) < 0.01 Total Protein (6.3 - 8.2 g/dL) 7.8 Albumin (3.5 - 5.0 g/dL) 3.5 Globulin (1.9 - 4.2 gm/dL) 4.3 H Albumin/Globulin Ratio (1.1 - 2.2 %) 0.8 L Triglycerides (<150 mg/dL) 290 H Cholesterol (< 200 MG/DL) 175 LDL Cholesterol, Calc (65 - 129 mg/dL) 82 HDL Cholesterol (40 - 60 mg/dL) 35 L Cholesterol/HDL Ratio (0.00 - 4.88 %) 5 H TSH (0.270 - 4.200 uIU/mL) 1.770 Free T4 (0.78 - 2.44 ng/dL) 1.89 Coagulation PT (9.4 - 12.5 SEC) 16.2 H INR (0.90 - 1.17) 1.55 H APTT (25 - 37 SEC) 37 Hematology CBC w Diff NO MAN DIFF REQ NO MAN DIFF REQ WBC (4.8 - 10.8 /CUMM) 10.1 8.4 RBC (4.70 - 6.10 /CUMM) 4.97 5.36 Hgb (14.0 - 18.0 G/DL) 14.2 15.4 Hct (42 - 52 %) 42.3 46.3 MCV (80.0 - 94.0 FL) 85.1 86.3 MCH (27.0 - 31.0 PG) 28.5 28.8 RDW (11.5 - 14.5 %) 15.3 H 15.1 H Plt Count (130 - 400 /CUMM) 230 229 MPV (7.4 - 10.4 FL) 8.4 8.2 Gran % (42.2 - 75.2 %) 71.6 78.8 H Lymphocytes % (20.5 - 51.1 %) 21.9 15.8 L Monocytes % (1.7 - 9.3 %) 6.0 5.0 Eosinophils % (0 - 5 %) 0.2 0.1 Basophils % (0.0 - 2.0 %) 0.3 0.3 Absolute Granulocytes (1.4 - 6.5 /CUMM) 7.2 H 6.7 H Absolute Lymphocytes (1.2 - 3.4 /CUMM) 2.2 1.3 Absolute Monocytes (0.10 - 0.60 /CUMM) 0.6 0.4 Absolute Eosinophils (0.0 - 0.7 /CUMM) 0 0 Absolute Basophils (0.0 - 0.2 /CUMM) 0 0 PUBS MCHC (33.0 - 37.0 G/DL) 33.5 33.3 Toxicology Digoxin (0.8 - 2.0 ng/mL) 0.7 L Assessment/Plan Assessment/Plan Patient is a 66 year old male with a PMH of CVA in 2013, atrial fibrillation on Xarelto, hypertension, hyperlipidemia, diabetes type 2 noncompliance with recent of HbA1c of > 12%, hypothyroidism who was BIBA after he noticed left sided numbness and weakness of the arm and leg. His glucose levels were not controlled. DM management: 1. start Levemir 20 units twice as day; 2. adjust Novolog coverage before meals and add-on Novolog coverage at bedtime; 3. monitor FSGs; 4. DM education and nutrition consult. will follow. Inpatient Diabetes Orders Before Each Meal: Bolus Insulin: Novolog < 80 mg/dl: no coverage 80-100 mg/dl: 8 units 101-120 mg/dl: 8 units 121-150 mg/dl: 8 units 151-200 mg/dl: 10 units 201-250 mg/dl: 12 units 251-300 mg/dl: 14 units 301-350 mg/dl: 16 units 351-400 mg/dl: 18 units > 400 mg/dl: 20 units Bedtime: Bolus Insulin: Novolog < 80 mg/dl: no coverage 80-100 mg/dl: no coverage 101-120 mg/dl: no coverage 121-150 mg/dl: no coverage 151-200 mg/dl: no coverage 201-250 mg/dl: no coverage 251-300 mg/dl: 2 units 301-350 mg/dl: 3 units 351-400 mg/dl: 4 units > 400 mg/dl: 5 units Consult Acknowledgment - Thank you for your consult request.
--- NOTE | 2016-08-01 14:05 | ULTRASOUND REPORT ---
EXAMINATION: US DUPLEX CAROTID, BILATERAL CLINICAL INDICATION: Anterior circulation stenosis COMPARISON: None. TECHNIQUE: Real-time ultrasound and Doppler techniques (integrating B-mode 2D vascular images, Doppler spectral analysis and color flow Doppler imaging) were utilized to interrogate the extracranial carotid and vertebral arteries bilaterally. The degree of stenosis determined by criteria similar to NASCET. FINDINGS: On the right, there is no significant plaque present at the carotid bifurcation. In the distal CCA, the peak systolic velocity is 72 cm/sec. In the proximal ICA, the peak systolic velocity is 82 cm/sec, and the end diastolic velocity is 12 cm/sec. The peak systolic velocity of the external carotid artery is 138 cm/s . On the left, there is no significant plaque present at the carotid bifurcation. In the distal CCA, the peak systolic velocity is 99 cm/sec. In the proximal ICA, the peak systolic velocity is 77 cm/sec, and the end diastolic velocity is 21 cm/sec. The peak systolic velocity of the external carotid artery is 128 cm/s. The right vertebral artery has antegrade flow with normal waveforms. The left vertebral artery is not definitely identified. IMPRESSION: 1. The right internal carotid artery shows no hemodynamically significant stenosis. 2. The left internal carotid artery shows no hemodynamically significant stenosis. Internal carotid artery stenoses fall in the 0-49% category by duplex Doppler velocity spectral waveform analysis. Left vertebral artery not definitely identified.
[2016-08-01 16:55] VITALS: BP 136/70
[2016-08-02 00:26] VITALS: BP 128/64
--- NOTE | 2016-08-02 07:12 | PN- Housestaff ---
FOZIA CORRALES,PREETHI 08/02/16 0712: Subjective Follow-up For: Acute ischaemic stroke Atrial Fibrillation Tele-Events Since Last Visit: Atrial flutter 69-80bpm, No overnight events. Subjective: I saw and examined the patient today monring He is able to speak, reports unable to move left upper and lower extremity. sensations are also effected. Review of Systems Constitutional: Reports: see HPI. Comments: ROS negative except the above. Objective Last 24 Hrs of Vital Signs/I&O Vital Signs Date Time Temp Pulse Resp B/P Pulse O2 O2 Flow FiO2 Ox Delivery Rate 08/02 0026 98.3 84 20 128/64 97 Room Air 08/01 1655 97.5 88 20 136/70 97 Room Air 08/01 1049 77 138/68 08/01 1049 77 138/68 08/01 0857 97.6 77 20 138/68 96 Room Air Intake & Output 08/02 0800 08/02 0000 08/01 1600 Intake Total 703 234 3123 Output Total 300 300 500 Balance -150 450 580 Intake, IV 0 600 Intake, Oral 150 750 480 Number 0 Bowel Movements Output, Urine 300 300 500 Physical Exam General Appearance: Alert, Oriented X3, Cooperative Skin: No Rashes, No Breakdown HEENT: Atraumatic, PERRLA, EOMI Neck: Supple Cardiovascular: Normal S1, Normal S2, No Murmurs Lungs: Clear to Auscultation Abdomen: Normal Bowel Sounds, Soft, No Tenderness Neurological: altered sensation in the left upper and lower extremity. weakness in the left upper and lower extremities both proximal and distal regions. Extremities: No Clubbing, No Cyanosis Vascular: Normal Pulses, Pulses Symmetrical Current Medications: Current Medications Sig/Alberto Start time Last Medication Dose Route Stop Time Status Admin Acetaminophen 500 MG Q6P PRN 08/01 0230 AC PO Aspirin Buffered 81 MG DAILY 08/03 1000 AC PO Aspirin Buffered 81 MG DAILY 08/01 1000 DC 08/02 PO 0915 Atorvastatin Calcium 40 MG 1700 08/02 1700 AC PO Atorvastatin Calcium 40 MG 1700 08/01 1700 AC 08/02 PO 1655 Digoxin 0.25 MG DAILY 08/03 1000 AC PO Digoxin 0.25 MG DAILY 08/01 1000 DC 08/02 PO 0915 Docusate Sodium 100 MG DAILY 08/03 1000 AC PO Duloxetine HCl 60 MG DAILY 08/03 1000 AC PO Furosemide 40 MG DAILY 08/03 1000 AC PO Gabapentin 100 MG TID 08/02 1600 AC 08/02 PO 1655 Gabapentin 100 MG Q8 08/01 0600 DC 08/02 PO 1327 Heparin Sodium 5,000 UNIT .STK-MED ONE 08/02 0856 DC (Porcine) IV 08/02 0857 Ibuprofen 400 MG Q6P PRN 08/01 0230 AC PO Insulin Aspart 0 TIDAC/HS 08/01 1220 AC 08/02 SC 1325 Insulin Detemir 25 UNITS BID 08/02 1000 AC 08/02 SC 0915 Insulin Detemir 20 UNITS BID 08/01 1219 DC 08/01 SC 2221 Levothyroxine Sodium 0.088 MG DAILY AC 08/03 0700 AC PO Levothyroxine Sodium 0.1 MG DAILY AC 08/03 0700 AC PO Levothyroxine Sodium 0.1 MG DAILY AC 08/01 0700 DC 08/02 PO 0623 Lisinopril 5 MG DAILY 08/03 1000 AC PO Metoprolol Succinate 300 MG DAILY 08/03 1000 AC PO Metoprolol Succinate 100 MG DAILY 08/01 1000 DC 08/02 PO 0916 Ondansetron HCl 4 MG Q6P PRN 08/01 2130 AC 08/01 IV 2126 Oxycodone/ 1 TAB Q6P PRN 08/01 0230 AC 08/02 Acetaminophen PO 1116 Rivaroxaban 20 MG DAILY 08/03 1000 AC PO Rivaroxaban 20 MG DAILY 08/01 1000 DC 08/02 PO 0915 Senna 187 MG AT BEDTIME 08/02 2200 AC PO Lines/Diet/Fluids Lines: peripheral lines Assessment/Plan Assessment: Patient is a 66-year-old gentleman with a PMH of CVA in 2013 with residual weakness of the right arm, atrial fibrillation on Xarelto, hypertension, hyperlipidemia, diabetes, hypothyroidism who is BIBA after feeling weakness and numbness on the left side of the body that started around 8:40 PM on 07/31/2016, accompanied by unsteady gait and impaired coordination on the left arm. CT scan of the head in the ED was negative for intracranial pathology. However and exam patient has dystaxic and assess and dysmetria on the left upper extremity as well as new weakness in the left lower extremity. No dysarthria noted. Problem list and plan: Posterior Circulation stroke * Telemetry monitoring * MRI brain shows acute left PICA territory infarct including multiple acute infarcts within the inferior half of the medial left cerebellum as well as an acute infarct involving the left dorsolateral medulla and cervicomedullary junction. No hemorrhagic transformation/no significant mass effect. * Continue aspirin, High-dose statin, atorvastatin 40 mg * Carotid Doppler ultrasound didnt reveal any significant stenosis as expected in posterior circulation stroke. * PT/OT/Speech therapy * Neuro recommends aggressive acute short term rehabilitation. Atrial fibrillation * echocardiogram pending * On xarelto 20mg, Digoxin 0.25mg dialy, Aspirin daily - we are continuing his home medications. * Rate control with Toprol XL 300mg daily. History of hypertension * Continue Toprol XL 300mg daily, Lisinopril 5mg daily, lasix 40mg daily. Diabetes On Insulin Humulin 80 units of 70/30 BID, Metformin, Toujeo solostar (28 units at bedtime), Kombiglyze * Started novolog insulin SS - adjusted according to his sugars * Increased levemir to 25 untis BID as his HbA1C is 11.6 * Gabapentine 100mg TID for neuropathy. * is on board. Hypothyroidism * states that he is on 0.1 levothyroxine and his TSH is normal. Depression * Continue his home medicaton duloxetine 60mg daily Diet * started on chopped, regular thin liquids. * Diabetic diet. Pain * mild pain pathway DVT prophylaxis * Patient is on Xarelto FULL CODE Problem List: 1. CVA (cerebral vascular accident) Pain Ratin Pain Location: n/a Pain Goal: Pain 4 or less Pain Plan: gabapentine tylenol Tomorrow's Labs & Rationales: bep to monitor electrolytes SHIKHA CANSECO MD 08/02/16 1251: Attending MD Review Statement Attending Statement Attending MD Statement: examined this patient, discuss w/resident/PA/JOINT FINISHER, agreed w/resident/PA/JOINT FINISHER, reviewed EMR data (avail) Attending Assessment/Plan: 66M PMH CVA in 2013, atrial fibrillation on Xarelto, hypertension, hyperlipidemia, diabetes, hypothyroidism admitted for left sided weakness and numbness in the setting of suspected CVA. CT head negative. No telemetry events. Patient scheduled for MRI head today, neurology consult, continue ASA and statin, continue Xarelto for now (may change depending on further workup), PT/OT
--- NOTE | 2016-08-02 08:16 | PN- Diabetes ---
Assessment/Plan Assessment: Patient is a 66 year old male with a PMH of CVA in 2013, atrial fibrillation on Xarelto, hypertension, hyperlipidemia, diabetes type 2 noncompliance with recent of HbA1c of > 12%, hypothyroidism who was BIBA after he noticed left sided numbness and weakness of the arm and leg. His glucose levels were not controlled. He was put on Levemir 20 units twice a day, Novolog coverage before meals and Novolog coverage at bedtime. His FSGs werev 304, 288, 221 and 221. Plan: 1. increase Levemir to 25 units twice as day; 2. adjust Novolog coverage before meals ( detail see the inpatient DM order)and continue the current Novolog coverage at bedtime; 3. monitor FSGs; 4. DM education and nutrition consult. will follow. Inpatient Diabetes Orders Before Each Meal: Bolus Insulin: Novolog < 80 mg/dl: no coverage 80-100 mg/dl: 10 units 101-120 mg/dl: 10 units 121-150 mg/dl: 10 units 151-200 mg/dl: 12 units 201-250 mg/dl: 14 units 251-300 mg/dl: 16 units 301-350 mg/dl: 18 units 351-400 mg/dl: 20 units > 400 mg/dl: 22 units Subjective Subjective: His glucose levels were still in the 200s. Objective Last 24 Hrs of Vital Signs/I&O Vital Signs Date Time Temp Pulse Resp B/P Pulse O2 O2 Flow FiO2 Ox Delivery Rate 08/02 0026 98.3 84 20 128/64 97 Room Air 08/01 1655 97.5 88 20 136/70 97 Room Air 08/01 1049 77 138/68 08/01 1049 77 138/68 / 0857 97.6 77 20 138/68 96 Room Air Intake & Output 08/02 1600 08/02 0800 08/02 0000 Intake Total 150 750 Output Total 300 300 Balance -150 450 Intake, IV 0 Intake, Oral 150 750 Number 0 Bowel Movements Output, Urine 300 300
[2016-08-02 08:50] VITALS: BP 132/76
--- NOTE | 2016-08-02 12:49 | MRI REPORT ---
MR BRAIN WITHOUT CONTRAST CLINICAL INFORMATION: Left-sided weakness. COMPARISON: Head CT 07/31/2016. TECHNIQUE: MRI of the brain without contrast was obtained using routine sequences. FINDINGS: Motion degraded exam. There is an acute left PICA territory infarct including multiple acute infarcts within the inferior half of the medial left cerebellum as well as an acute infarct involving the left dorsolateral medulla and cervicomedullary junction. Artifact versus a small acute infarct within the right occipital lobe. Accounting for artifact no additional acute infarcts are appreciated. There is no evidence of hemorrhagic transformation on the gradient series. There is a chronic left MCA territory infarct within the left perirolandic region with associated encephalomalacia and gliosis. There are background T2 signal changes throughout the supratentorial white matter suggesting mild chronic microangiopathy. There is no hydrocephalus, extra-axial surface collection, or herniation. Loss of the imaged cervical and intracranial left vertebral artery flow voids suggesting slow flow versus occlusion. The remaining intracranial arterial flow voids are maintained. The midline structures are normal. The craniocervical junction is normal. Osseous marrow signal intensity is homogenous. The visualized soft tissues are unremarkable. There is a large retention cyst versus polyp within the left maxillary sinus. The remaining paranasal sinuses and the mastoid air cells are clear. IMPRESSION: - There is an acute left PICA territory infarct including multiple acute infarcts within the inferior half of the medial left cerebellum as well as an acute infarct involving the left dorsolateral medulla and cervicomedullary junction. No hemorrhagic transformation and no significant mass effect at this time. - Artifact versus a small acute infarct within the right occipital lobe. - Loss of the imaged cervical and intracranial left vertebral artery flow voids suggesting slow flow versus occlusion. - Chronic left MCA territory infarct and mild chronic microangiopathy.
--- NOTE | 2016-08-02 13:38 | Discharge Summary ---
Visit Information Visit Dates Admission Date: 08/01/16 Discharge Date: 08/04/16 Hospital Course Course Attending Physician: SHIKHA CANSECO MD Primary Care Physician: IMAN MARQUEZ MD Consulting Request: Consulting Specialty: Neurology Consulting Physician: Dr. 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 CT scan of the head in the ED was negative for intracranial pathology. However and exam patient has dystaxic and assess and dysmetria on the left upper extremity as well as new weakness in the left lower extremity. No dysarthria noted. Patient was admitted to telemetry floor and we managed him for the following conditions: Cerebral Vascular Accident Patient had persistent weakness, dysmetria and dystaxia above and beyond his neuro findings after previous CVA. Initial CT head was negative but MRI showed multiple areas with ischemic findings. The patient was seen by neurologist Dr. Cuello. He was started on high intensity statins and continued on anticoagulation. PT evaluation demostarted that the patient required skilled PT. He is been discharged to a rehabilitation facility for further treatment. Atrial fibrillation Patient has history of atrial fibrillation. He is on Xarelto 20mg daily. He was started on his home mdeication and also maintained on Metoprolol XL home dose initially at a reduced dose and later at his home dose level. Heart rate remained controlled with appropriate pressure through out the stay. The patient was discharged on his home medication dose. It was re-emphasized to the patient the importance of taking his medication as prescribed to reduce possibility of getting stroke in the future. Diabetes Mellitus Patient has history of diabeted mellitus. He was on Insulin Humulin 80 units of 70/30 BID, Metformin, Toujeo solostar (28 units at bedtime), Kombiglyze at home. We held his home antidiabetic medications and covered him with novolog sliding scale and levemir insulin. Patient was started on consistent carbonhydrate three diet. Patient diabeted is not controlled with recorded HBA1C of 11.6 on the admission blood sample. At discharge placed on levemir 32 units BID, adjusted Insulin sliding scale ( please see CMR) and Kombiglyze (08/999) daily. Please follow up with . Hypothyroidism Patient is on 0.188 mg of levothyroxine at home. We started the same dose of medication during the course of this admission. TSH checked was within normal limits. Complications: None Allergies: Coded Allergies: NO KNOWN ALLERGIES (08/01/16) Significant Procedures: Head MRI: There is an acute left PICA territory infarct including multiple acute infarcts within the inferior half of the medial left cerebellum as well as an acute infarct involving the left dorsolateral medulla and cervicomedullary junction. No hemorrhagic transformation and no significant mass effect at this time. Pertinent Lab Results: Laboratory Tests 08/01 08/01 0650 0012 Chemistry Sodium (137 - 145 mmol/L) 135 L 137 Potassium (3.5 - 5.1 mmol/L) 4.6 4.4 Chloride (98 - 107 mmol/L) 103 100 Carbon Dioxide (22 - 30 mmol/L) 25 26 Anion Gap (5 - 16) 8 11 BUN (9 - 20 mg/dL) 14 14 Creatinine (0.7 - 1.2 mg/dL) 0.6 L 0.7 Estimated GFR (>60 ml/min) > 60 > 60 BUN/Creatinine Ratio (7 - 25 %) 23.3 20.0 Glucose (65 - 99 mg/dL) 351 H Hemoglobin A1c (4.2 - 5.8 %) 11.6 H Calcium (8.4 - 10.2 mg/dL) 9.1 Magnesium (1.6 - 2.3 mg/dL) 3.1 H Total Bilirubin (0.2 - 1.3 mg/dL) 0.7 AST (17 - 59 U/L) 71 H ALT (21 - 72 U/L) 59 Alkaline Phosphatase (< 127 U/L) 96 Troponin I (<0.11 ng/ml) < 0.01 Total Protein (6.3 - 8.2 g/dL) 7.8 Albumin (3.5 - 5.0 g/dL) 3.5 Globulin (1.9 - 4.2 gm/dL) 4.3 H Albumin/Globulin Ratio (1.1 - 2.2 %) 0.8 L Triglycerides (<150 mg/dL) 290 H Cholesterol (< 200 MG/DL) 175 LDL Cholesterol, Calc (65 - 129 mg/dL) 82 HDL Cholesterol (40 - 60 mg/dL) 35 L Cholesterol/HDL Ratio (0.00 - 4.88 %) 5 H TSH (0.270 - 4.200 uIU/mL) 1.770 Free T4 (0.78 - 2.44 ng/dL) 1.89 Coagulation PT (9.4 - 12.5 SEC) 16.2 H INR (0.90 - 1.17) 1.55 H APTT (25 - 37 SEC) 37 Hematology CBC w Diff NO MAN DIFF REQ NO MAN DIFF REQ WBC (4.8 - 10.8 /CUMM) 10.1 8.4 RBC (4.70 - 6.10 /CUMM) 4.97 5.36 Hgb (14.0 - 18.0 G/DL) 14.2 15.4 Hct (42 - 52 %) 42.3 46.3 MCV (80.0 - 94.0 FL) 85.1 86.3 MCH (27.0 - 31.0 PG) 28.5 28.8 RDW (11.5 - 14.5 %) 15.3 H 15.1 H Plt Count (130 - 400 /CUMM) 230 229 MPV (7.4 - 10.4 FL) 8.4 8.2 Gran % (42.2 - 75.2 %) 71.6 78.8 H Lymphocytes % (20.5 - 51.1 %) 21.9 15.8 L Monocytes % (1.7 - 9.3 %) 6.0 5.0 Eosinophils % (0 - 5 %) 0.2 0.1 Basophils % (0.0 - 2.0 %) 0.3 0.3 Absolute Granulocytes (1.4 - 6.5 /CUMM) 7.2 H 6.7 H Absolute Lymphocytes (1.2 - 3.4 /CUMM) 2.2 1.3 Absolute Monocytes (0.10 - 0.60 /CUMM) 0.6 0.4 Absolute Eosinophils (0.0 - 0.7 /CUMM) 0 0 Absolute Basophils (0.0 - 0.2 /CUMM) 0 0 PUBS MCHC (33.0 - 37.0 G/DL) 33.5 33.3 Toxicology Digoxin (0.8 - 2.0 ng/mL) 0.7 L Disposition Summary Disposition Principal Diagnosis: CVA Diabetes Mellitus Atrial Fibrillation Additional Diagnosis: Hypothyroidism Discharge Disposition: SNF Discharge Instructions General Discharge Information Code Status: Full Code Patient's Diet: Diabetic diet Patient's Activity: As tolerated Follow-Up Instructions/Appts: Please call and make a follow up with your primary care physician within one week after discharge Please call and make a follow up with neurologist Dr. Cuello within one week after discharge Medications at Discharge Discharge Medications: Stop taking the following medications: Insulin NPH Hum/Reg Insulin Hm (Humulin 70/30 Kwikpen) 100 UNIT/ML (70-30) INSULN.PEN Inject into fatty tissue TWICE DAILY Pravastatin Sodium (Pravachol) 80 MG TABLET ORAL DAILY Metformin HCl (Metformin HCl ER) 1,000 MG TAB.ER.24 ORAL DAILY Saxagliptin (Onglyza) 5 MG TABLET ORAL DAILY Continue taking these medications: Duloxetine HCl (Cymbalta) 60 MG CAPSULE.DR Crenshaw Capsule ORAL DAILY Comments: Last Taken: 08/04/16 Time: 11 AM Levothyroxine Sodium (Levothyroxine Sodium) 100 MCG TABLET 1 Tablet ORAL DAILY BEFORE BREAKFAST Comments: Last Taken: 08/04/16 Time: 6 AM Rivaroxaban (Xarelto) 20 MG TABLET 1 Tablet ORAL DAILY Instructions: with food Comments: Last Taken: 08/04/16 Time: 11 AM Lisinopril (Prinivil) 5 MG TABLET 1 Tablet ORAL DAILY Comments: Last Taken: 08/04/16 Time: 11 AM Metoprolol Succinate (Toprol XL) 200 MG TAB.ER.24H 1.5 Tablet ORAL DAILY Comments: Last Taken: 08/04/16 Time: 11 AM Gabapentin (Neurontin) 100 MG CAPSULE 1 Capsule ORAL THREE TIMES DAILY Comments: Last Taken: 08/04/16 Time: 4:30 PM Digoxin (Digoxin) 250 MCG TABLET 1 Tablet ORAL DAILY Comments: Last Taken: 08/04/16 Time: 11 AM Furosemide (Lasix) 40 MG TABLET 1 Tablet ORAL DAILY Comments: Last Taken: 08/04/16 Time: 11 AM Levothyroxine Sodium (Levothyroxine Sodium) 88 MCG TABLET 1 Tablet ORAL DAILY BEFORE BREAKFAST Comments: Last Taken: 08/04/16 Time: 6 AM Aspirin (Ecotrin*) 81 MG TABLET. 1 Tablet ORAL DAILY Comments: Last Taken: 08/04/16 Time: 11 AM Sennosides (Senna) 8.6 MG TABLET 1 Tablet ORAL DAILY Comments: Last Taken: 08/03/16 Time: 9 PM Docusate Sodium (Colace) 100 MG CAPSULE 1 Capsule ORAL DAILY Comments: Last Taken: 08/04/16 Time: 11 AM Saxagliptin HCl/Metformin HCl (Kombiglyze XR 5-1,000 MG Tab) 5 MG-1,000 MG TBMP.24HR 1 Tablet ORAL DAILY Qty = 30 Comments: NOT GIVEN IN HOSPITAL Start taking the following new medications: Atorvastatin Calcium (Atorvastatin Calcium) 80 MG TABLET 80 Milligram ORAL 5 PM Qty = 60 No Refills Comments: Last Taken: 08/04/16 Time: 4:30 PM Insulin Aspart (Novolog) 100 UNIT/ML VIAL 0 Units Inject into fatty tissue BEFORE MEALS AND AT BEDTIME Qty = 10 No Refills Instructions: BEFORE MEALS Blood Insulin Sugar Units <80 0 81-150 10 151-200 12 201-250 14 251-300 16 301-350 18 351-400 20 >400 22 units and Call Doctor AT BEDTIME Blood Insulin Sugar Units <80 0 81-100 0 100 - 200 0 201-250 0 251-300 2 301-350 3 351-400 4 >400 5 units and Call Doctor Comments: Last Taken: 08/04/16 Time: 12 NOON Insulin Detemir (Levemir) 100 UNIT/ML VIAL 32 Units Inject into fatty tissue TWICE DAILY Qty = 30 No Refills Comments: Last Taken: 08/04/16 Time: 11 AM Copies To: ANUSHA CORRALES,MANA Zamarripa; ALMA CORRALES,IMAN Loomis Attending MD Review Statement Documenting Attending: SHIKHA CANSECO MD
[2016-08-02] MEDS ORDERED: ONGLYZA5 M1 PO (15:27)
--- NOTE | 2016-08-02 15:38 | Event Note ---
Event Note Event Note: Called patient primary prescriptions provider [facility] and updated his home CMR. The contact phone is . I have updated home CMR per information from [facility]. The only medication lacking from [facility] is patent with aspirin which I think the patient is taking [id number] 81 mg daily.
[2016-08-02 16:29] VITALS: BP 130/78
--- NOTE | 2016-08-02 16:54 | Cons- Neurology ---
General Information and HPI Consulting Request Date of Consult: 08/02/16 Requested By: SHIKHA CANSECO MD History of Present Illness: 66-year-old male who 2 days ago noted onset of vertiginous dizziness. He went to sleep and when he awakened he noted left-sided arm and leg numbness and weakness. At times the numbness was painful and sensitive to touch. He found that he was unable to walk. The dizziness resolved but the left-sided weakness remained persistent He noted mild nausea but no vomiting. There was no chest pain, headache, fall or head trauma In-hospital he has had to be fed He has residual right-sided weakness following a cerebrovascular accident about 2 years ago Allergies/Medications Allergies: Coded Allergies: NO KNOWN ALLERGIES (08/01/16) Home Med List: Aspirin (Ecotrin*) 81 MG TABLET.DR 1 TAB PO DAILY HEART HEALTH (Reported) Digoxin 250 MCG TABLET 1 TAB PO DAILY HEART (Reported) Docusate Sodium (Colace) 100 MG CAPSULE 1 CAP PO DAILY GI (Reported) Duloxetine HCl (Cymbalta) 60 MG CAPSULE.DR 1 CAP PO DAILY MENTAL HEALTH ( Reported) Furosemide (Lasix) 40 MG TABLET 1 TAB PO DAILY DIURETIC (Reported) Gabapentin (Neurontin) 100 MG CAPSULE 1 CAP PO TID NEUROPATHY (Reported) Insulin NPH Hum/Reg Insulin Hm (Humulin 70/30 Kwikpen) 100 UNIT/ML (70-30) INSULN.PEN 100 U SC BID DIABETES (Reported) Levothyroxine Sodium 88 MCG TABLET 1 TAB PO DAILY AC THYROID (Reported) Levothyroxine Sodium 100 MCG TABLET 1 TAB PO DAILY AC THYROID (Reported) Lisinopril (Prinivil) 5 MG TABLET 1 TAB PO DAILY BP (Reported) Metformin HCl (Metformin HCl ER) 1,000 MG TAB.ER.24 1 TAB PO DAILY DIABETES ( Reported) Metoprolol Succinate (Toprol XL) 200 MG TAB.ER.24H 1.5 TAB PO DAILY HEART ( Reported) Pravastatin Sodium (Pravachol) 80 MG TABLET 1 TAB PO DAILY CHOLESTEROL ( Reported) Rivaroxaban (Xarelto) 20 MG TABLET 1 TAB PO DAILY BLOOD THINNER (Reported) with food Saxagliptin (Onglyza) 5 MG TABLET 1 TAB PO DAILY DIABETES (Reported) Sennosides (Senna) 8.6 MG TABLET 1 TAB PO DAILY CONSTIPATION (Reported) Current Medications: Current Medications Sig/Alberto Start time Last Medication Dose Route Stop Time Status Admin Acetaminophen 500 MG Q6P PRN 08/01 0230 AC PO Aspirin Buffered 81 MG DAILY 08/03 1000 AC PO Aspirin Buffered 81 MG DAILY 08/01 1000 DC 08/02 PO 0915 Atorvastatin Calcium 40 MG 1700 08/02 1700 AC PO Atorvastatin Calcium 40 MG 1700 08/01 1700 AC 08/01 PO 1638 Digoxin 0.25 MG DAILY 08/03 1000 AC PO Digoxin 0.25 MG DAILY 08/01 1000 DC 08/02 PO 0915 Docusate Sodium 100 MG DAILY 08/03 1000 AC PO Duloxetine HCl 60 MG DAILY 08/03 1000 AC PO Furosemide 40 MG DAILY 08/03 1000 AC PO Gabapentin 100 MG TID 08/02 1600 AC PO Gabapentin 100 MG Q8 08/01 0600 DC 08/02 PO 1327 Ibuprofen 400 MG Q6P PRN 08/01 0230 AC PO Insulin Aspart 0 TIDAC/HS 08/01 1220 AC 08/02 SC 1325 Insulin Detemir 25 UNITS BID 08/02 1000 AC 08/02 SC 0915 Insulin Detemir 20 UNITS BID 08/01 1219 DC 08/01 SC 2221 Levothyroxine Sodium 0.088 MG DAILY AC 08/03 0700 AC PO Levothyroxine Sodium 0.1 MG DAILY AC 08/03 0700 AC PO Levothyroxine Sodium 0.1 MG DAILY AC 08/01 0700 DC 08/02 PO 0623 Lisinopril 5 MG DAILY 08/03 1000 AC PO Metoprolol Succinate 300 MG DAILY 08/03 1000 AC PO Metoprolol Succinate 100 MG DAILY 08/01 1000 DC 08/02 PO 0916 Ondansetron HCl 4 MG Q6P PRN 08/01 2130 AC 08/01 IV 2126 Oxycodone/ 1 TAB Q6P PRN 08/01 0230 AC 08/02 Acetaminophen PO 1116 Rivaroxaban 20 MG DAILY 08/03 1000 AC PO Rivaroxaban 20 MG DAILY 08/01 1000 DC 08/02 PO 0915 Senna 187 MG AT BEDTIME 08/02 2200 AC PO Review of Systems Review of Systems: Denies headache, diplopia, fall, difficulty with swallowing, chest pain, breathing difficulties, vomiting. He does have urinary frequency and occasional incontinence, there is occasional swelling and discoloration of lower extremities He usually walks independently Good been no recent fevers. Other systems reviewed are negative Past History Travel History Traveled to [place] past 21 day No Medical History Neurological: CVA EENT: NONE Cardiovascular: AFIB, hypertension, hyperlipidemia Respiratory: obstructive sleep apnea Gastrointestinal: NONE Hepatic: NONE Renal: NONE Musculoskeletal: NONE Psychiatric: NONE Endocrine: diabetes, hypothyroidism Blood Disorders: NONE Cancer(s): NONE RN CHARGE/Reproductive: NONE Surgical History Surgical History: none Family History Relations & Conditions If Any: MOTHER FH: COPD (chronic obstructive pulmonary disease) FATHER FH: diabetes mellitus FH: HTN (hypertension) Psychosocial History Where Do You Live? Home Services at Home: None Smoking Status: Never Smoked ETOH Use: denies use, occasional use Illicit Drug Use: denies illicit drug use Functional Ability ADLs Independent: dressing, eating, toileting, bathing. Ambulation: independent Exam & Diagnostic Data Vital Signs and I&O Vital Signs Date Time Temp Pulse Resp B/P Pulse O2 O2 Flow FiO2 Ox Delivery Rate 08/02 1629 98.1 65 18 130/78 98 Room Air 08/02 1616 Room Air 08/02 1600 Room Air 08/02 0916 97.5 75 132/76 08/02 0915 75 132/76 08/02 0850 97.5 75 20 132/76 97 Room Air 08/02 0026 98.3 84 20 128/64 97 Room Air 08/01 1655 97.5 88 20 136/70 97 Room Air Intake & Output 08/02 1600 08/02 0800 / 0000 Intake Total 750 150 750 Output Total 675 300 300 Balance 75 -150 450 Intake, IV 0 Intake, Oral 750 150 750 Number 0 0 Bowel Movements Output, Urine 675 300 300 Patient 245 lb Weight Physical Exam: Alert and oriented, comfortable Mild dysarthria Heart sounds normal, no carotid bruits, distal pulses intact Extraocular movements full, pupils equal and reactive, fundi benign, visual castorena intact, no facial weakness or sensory loss, palate tongue and shoulders intact, hearing grossly intact Motor examination shows normal tone in the lower extremities. There is weakness of left upper extremity both proximal and distal and hip flexion weakness on the left. Right side sews residual distal weakness right upper extremity with difficulty in grasping with the right hand Sensory examination shows altered sensation left upper and left lower extremity with a sense of dysesthesia There was loss of position sense on the left Cord and coordination on left upper extremities impaired Deep tendon reflexes hypoactive throughout Patient is unable to walk at this time Last 48 Hours of Lab Results: Laboratory Tests 08/01 08/01 0650 0012 Chemistry Sodium (137 - 145 mmol/L) 135 L 137 Potassium (3.5 - 5.1 mmol/L) 4.6 4.4 Chloride (98 - 107 mmol/L) 103 100 Carbon Dioxide (22 - 30 mmol/L) 25 26 Anion Gap (5 - 16) 8 11 BUN (9 - 20 mg/dL) 14 14 Creatinine (0.7 - 1.2 mg/dL) 0.6 L 0.7 Estimated GFR (>60 ml/min) > 60 > 60 BUN/Creatinine Ratio (7 - 25 %) 23.3 20.0 Glucose (65 - 99 mg/dL) 351 H Hemoglobin A1c (4.2 - 5.8 %) 11.6 H Calcium (8.4 - 10.2 mg/dL) 9.1 Magnesium (1.6 - 2.3 mg/dL) 3.1 H Total Bilirubin (0.2 - 1.3 mg/dL) 0.7 AST (17 - 59 U/L) 71 H ALT (21 - 72 U/L) 59 Alkaline Phosphatase (< 127 U/L) 96 Troponin I (<0.11 ng/ml) < 0.01 Total Protein (6.3 - 8.2 g/dL) 7.8 Albumin (3.5 - 5.0 g/dL) 3.5 Globulin (1.9 - 4.2 gm/dL) 4.3 H Albumin/Globulin Ratio (1.1 - 2.2 %) 0.8 L Triglycerides (<150 mg/dL) 290 H Cholesterol (< 200 MG/DL) 175 LDL Cholesterol, Calc (65 - 129 mg/dL) 82 HDL Cholesterol (40 - 60 mg/dL) 35 L Cholesterol/HDL Ratio (0.00 - 4.88 %) 5 H TSH (0.270 - 4.200 uIU/mL) 1.770 Free T4 (0.78 - 2.44 ng/dL) 1.89 Coagulation PT (9.4 - 12.5 SEC) 16.2 H INR (0.90 - 1.17) 1.55 H APTT (25 - 37 SEC) 37 Hematology CBC w Diff NO MAN DIFF REQ NO MAN DIFF REQ WBC (4.8 - 10.8 /CUMM) 10.1 8.4 RBC (4.70 - 6.10 /CUMM) 4.97 5.36 Hgb (14.0 - 18.0 G/DL) 14.2 15.4 Hct (42 - 52 %) 42.3 46.3 MCV (80.0 - 94.0 FL) 85.1 86.3 MCH (27.0 - 31.0 PG) 28.5 28.8 RDW (11.5 - 14.5 %) 15.3 H 15.1 H Plt Count (130 - 400 /CUMM) 230 229 MPV (7.4 - 10.4 FL) 8.4 8.2 Gran % (42.2 - 75.2 %) 71.6 78.8 H Lymphocytes % (20.5 - 51.1 %) 21.9 15.8 L Monocytes % (1.7 - 9.3 %) 6.0 5.0 Eosinophils % (0 - 5 %) 0.2 0.1 Basophils % (0.0 - 2.0 %) 0.3 0.3 Absolute Granulocytes (1.4 - 6.5 /CUMM) 7.2 H 6.7 H Absolute Lymphocytes (1.2 - 3.4 /CUMM) 2.2 1.3 Absolute Monocytes (0.10 - 0.60 /CUMM) 0.6 0.4 Absolute Eosinophils (0.0 - 0.7 /CUMM) 0 0 Absolute Basophils (0.0 - 0.2 /CUMM) 0 0 PUBS MCHC (33.0 - 37.0 G/DL) 33.5 33.3 Toxicology Digoxin (0.8 - 2.0 ng/mL) 0.7 L Imaging/Other Studies: MTI brain: IMPRESSION: - There is an acute left PICA territory infarct including multiple acute infarcts within the inferior half of the medial left cerebellum as well as an acute infarct involving the left dorsolateral medulla and cervicomedullary junction. No hemorrhagic transformation and no significant mass effect at this time. - Artifact versus a small acute infarct within the right occipital lobe. - Loss of the imaged cervical and intracranial left vertebral artery flow voids suggesting slow flow versus occlusion. - Chronic left MCA territory infarct and mild chronic microangiopathy. carotid u/s MPRESSION: 1. The right internal carotid artery shows no hemodynamically significant stenosis. 2. The left internal carotid artery shows no hemodynamically significant stenosis. Internal carotid artery stenoses fall in the 0-49% category by duplex Doppler velocity spectral waveform analysis. Left vertebral artery not definitely identified. DICTATED BY: JODIE ANGEL MD Assessment/Plan Assessment: Infarct, posterior circulation with residual left sided weakness and incoordination Recommendations: Continue anticoagulants, high-dose atorvastatin, diabetic control Rehabilitation and acute rehabilitation unit such as [facility] Patient has been in [place] [facility] in the past prefers that facility Consult Acknowledgment - Thank you for your consult request.
[2016-08-02 23:31] VITALS: BP 120/70
--- NOTE | 2016-08-03 07:32 | PN- Housestaff ---
FOZIA CORRALES,PREETHI 08/03/16 0730: Subjective Follow-up For: Left sided hemiplagia Left Cerebellar stroke Tele-Events Since Last Visit: Atrial Fibrillation - 61-76bpm 6am - dipped down to 40's Subjective: I saw the patient today morning He is still sleeping, reports he had a rough night. He is doing better today, needs more physical and occupational therapy. Review of Systems Constitutional: Reports: see HPI. Neurological/Psychological: Reports: numbness, unable to move lower ext, unable to move upper ext, weakness. Comments: ROS negative except the above. Objective Last 24 Hrs of Vital Signs/I&O Vital Signs Date Time Temp Pulse Resp B/P Pulse O2 O2 Flow FiO2 Ox Delivery Rate 08/03 0000 96 Room Air 08/02 2331 98.7 63 18 120/70 96 Room Air 08/02 1629 98.1 65 18 130/78 98 Room Air 08/02 1616 Room Air 08/02 1600 Room Air 08/02 0916 97.5 75 132/76 08/02 0915 75 132/76 08/02 0850 97.5 75 20 132/76 97 Room Air Intake & Output 08/03 0800 08/03 0000 03 1600 Intake Total 780 1165 750 Output Total 550 740 675 Balance 230 425 75 Intake, Oral 780 1165 750 Number 0 Bowel Movements Output, Urine 550 740 675 Patient 111.13 kg Weight Physical Exam General Appearance: Alert, Oriented X3, Cooperative Skin: No Rashes HEENT: Atraumatic, PERRLA, EOMI Neck: Supple Cardiovascular: Normal S1, Normal S2 Lungs: Clear to Auscultation, Normal Air Movement Assessment/Plan Assessment: Patient is a 66-year-old gentleman with a PMH of CVA in 2013 with residual weakness of the right arm, atrial fibrillation on Xarelto, hypertension, hyperlipidemia, diabetes, hypothyroidism who is BIBA after feeling weakness and numbness on the left side of the body that started around 8:40 PM on 07/31/2016, accompanied by unsteady gait and impaired coordination on the left arm. CT scan of the head in the ED was negative for intracranial pathology. However and exam patient has dystaxic and assess and dysmetria on the left upper extremity as well as new weakness in the left lower extremity. No dysarthria noted. 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 No hemorrhagic transformation/no significant mass effect. * Continue aspirin, High-dose statin, atorvastatin 80mg * Carotid Doppler ultrasound didnt reveal any significant stenosis as expected. * PT/OT/Speech therapy * Neuro recommends aggressive acute short term rehabilitation but patient is not willing so may go to [facility]. Atrial fibrillation * echocardiogram pending * On xarelto 20mg, Digoxin 0.25mg dialy, Aspirin daily - we are continuing his home medications. * Rate control with Toprol XL 300mg daily. History of hypertension * Continue Toprol XL 300mg daily, Lisinopril 5mg daily, lasix 40mg daily. Diabetes On Insulin Humulin 80 units of 70/30 BID, Metformin, levemir 20untis at bedtime. * Started novolog insulin SS - adjusted according to his sugars * Increased levemir to 28 untis BID as his HbA1C is 11.6 and sugars are not under control with current dose. * Gabapentine 100mg TID for neuropathy. * is on board. Hypothyroidism * states that he is on 0.1 levothyroxine and his TSH is normal. Depression * Continue his home medicaton duloxetine 60mg daily Diet * started on chopped, regular thin liquids. * Diabetic diet. Pain * mild pain pathway DVT prophylaxis * Patient is on Xarelto FULL CODE Problem List: 1. CVA (cerebral vascular accident) 2. Posterior circulation stroke Pain Ratin Pain Location: n/a Pain Goal: Pain 4 or less Pain Plan: tylenol PRN Tomorrow's Labs & Rationales: none Consulting Request: Consulting Specialty: Neurology Consulting Physician: Dr. Cuello Reason for Consult: CVA SHIKHA CANSECO MD 08/03/16 1053: Attending MD Review Statement Attending Statement Attending MD Statement: examined this patient, discuss w/resident/PA/BACKING IN MACHINE TENDER, agreed w/resident/PA/BACKING IN MACHINE TENDER, reviewed EMR data (avail) Attending Assessment/Plan: 66M PMH CVA in 2013, atrial fibrillation on Xarelto, hypertension, hyperlipidemia, diabetes, hypothyroidism admitted for left sided weakness and numbness in the setting of suspected CVA. CT head negative. No telemetry events. MRI shows posterior CVA. Will follow neurology recommendations, continue ASA and statin, continue Xarelto for now, PT/OT. Will be discharged to [facility] tomorrow.
--- NOTE | 2016-08-03 07:41 | Patient Discharge Instructions ---
Discharge Instructions General Discharge Information You were seen/treated for: CVA Special Instructions: Please call and make a follow up with your PCP within one week after discharge Please call and make a follow up with neurologist Dr. Cuello contacts provided below Please follow up with regarding your blood sugars. Diet Recommended Diet: Diabetic Activity Activity Self Limited: Yes Acute Coronary Syndrome Inclusion Criteria At DC or during hospital stay patient has or had the following: ACS DIAGNOSIS No Discharge Core Measures Meds if any: Prescribed or Continued at Discharge Meds if any: NOT Prescribed or Continued at Discharge Congestive Heart Failure Inclusion Criteria At DC or during hospital stay patient has or had the following: CHF DIAGNOSIS No Discharge Core Measures Meds if any: Prescribed or Continued at Discharge Meds if any: NOT Prescribed or Continued at Discharge Cerebrovascular accident Inclusion Criteria At DC or during hospital stay patient has or had the following: CVA/TIA Diagnosis Yes Discharge Core Measures Meds if any: Prescribed or Continued at Discharge Antithrombotic Yes Statin (required if LDL =>70) Yes Anticoagulant Yes Meds if any: NOT Prescribed or Continued at Discharge Venous thromboembolism Inclusion Criteria VTE Diagnosis No VTE Type NONE VTE Confirmed by (Test) NONE Discharge Core Measures - Per Current guidelines, there needs to be overlap - treatment for the first 5 days of Warfarin therapy. - If discharged on Warfarin prior to 5 days of - overlap therapy, the patient will need to be - assessed for post discharge needs including - *Post discharge parental anticoagulation - *Warfarin and/or parental anticoagulation education - *Follow up date to check INR post discharge At least 5 days overlap therapy as Inpatient No Meds if any: Prescribed or Continued at Discharge Note: Overlap Therapy is Warfarin and Anticoagulant Meds if any: NOT Prescribed or Continued at Discharge
[2016-08-03 08:00] VITALS: BP 140/90
[2016-08-03] MEDS ORDERED: ATORVASTATIN CA80 M1 PO (08:15)
--- NOTE | 2016-08-03 08:21 | PN- Diabetes ---
Assessment/Plan Assessment: Patient is a 66 year old male with a PMH of CVA in 2013, atrial fibrillation on Xarelto, hypertension, hyperlipidemia, diabetes type 2 noncompliance with recent of HbA1c of > 12%, hypothyroidism who was BIBA after he noticed left sided numbness and weakness of the arm and leg. His glucose levels were not controlled. Levemir was increased to 25 units twice a day; Novolog coverage before meals was adjusted. In addition, he is on Novolog coverage at bedtime. His FSGs were 221, 286, 229, 282 and 188. Plan: 1. increase Levemir to 28 units twice a day; 2. continue the current Novolog coverage before meals and Novolog coverage at bedtime; 3. monitor FSGs; will follow. Subjective Subjective: He appears sleepy ? due to pain medication. Objective Last 24 Hrs of Vital Signs/I&O Vital Signs Date Time Temp Pulse Resp B/P Pulse O2 O2 Flow FiO2 Ox Delivery Rate 08/03 0000 96 Room Air 08/02 2331 98.7 63 18 120/70 96 Room Air 08/02 1629 98.1 65 18 130/78 98 Room Air 08/02 1616 Room Air 08/02 1600 Room Air 08/02 0916 97.5 75 132/76 08/02 0915 75 132/76 / 0850 97.5 75 20 132/76 97 Room Air Intake & Output 08/03 1600 08/03 0800 08/03 0000 Intake Total 780 1165 Output Total 550 740 Balance 230 425 Intake, Oral 780 1165 Output, Urine 550 740 Findings Pertinent Lab/Rashi Results: Laboratory Tests 08/03 0630 Chemistry Sodium (137 - 145 mmol/L) 136 L Potassium (3.5 - 5.1 mmol/L) 4.3 Chloride (98 - 107 mmol/L) 100 Carbon Dioxide (22 - 30 mmol/L) 27 Anion Gap (5 - 16) 9 BUN (9 - 20 mg/dL) 16 Creatinine (0.7 - 1.2 mg/dL) 0.7 Estimated GFR (>60 ml/min) > 60 BUN/Creatinine Ratio (7 - 25 %) 22.9
[2016-08-03 16:04] VITALS: BP 123/48
--- NOTE | 2016-08-03 17:04 | ECHOCARDIOGRAM REPORT ---
CALLI ASTER Age: 66 : 1950 Gender: M Exam Date: 08/03/2016 12:16 Exam Location: [facility] Ht (in): 68 Wt (lb): 244 BSA: 2.35 BP: 140 / 90 Ordering Physician: Vicky Jones MD Referring Physician: VICKY JONES MD Technologist: Jailene Hughes Room Number: 177 Indications: STROKE Rhythm: Atrial fibrillation Technical Quality: Technically difficult study FINDINGS Left Ventricle Normal size left ventricle. Mild concentric left ventricular hypertrophy. Low normal left ventricular systolic function. Left ventricular ejection fraction is estimated at 50-55%. Right Ventricle Normal right ventricular size and function. Right Atrium Normal right atrial size. Left Atrium Normal left atrial size. Mitral Valve Mitral annular calcification. Mitral valve thickened. Trace mitral regurgitation. Aortic Valve Diffuse thickening (sclerosis) of the aortic valve cusps without reduced excursion. No aortic stenosis. No aortic regurgitation. Tricuspid Valve Tricuspid valve not well visualized, grossly normal. Mild tricuspid regurgitation. No evidence of pulmonary hypertension. Pulmonic Valve Pulmonic valve not well visualized, grossly normal. Trace pulmonic regurgitation. Pericardium No pericardial effusion. Great Vessels Normal size aortic root. CONCLUSIONS Normal size left ventricle. Mild concentric left ventricular hypertrophy. Low normal left ventricular systolic function. Left ventricular ejection fraction is estimated at 50-55%. Trace mitral regurgitation. Mild tricuspid regurgitation. Trace pulmonic regurgitation. No evidence of pulmonary hypertension. Blaise Longo M.D. (Electronically Signed) Final Date: 03 August 2016 17:03 MEASUREMENTS (Male / Female) Normal Values 2D ECHO LV Diastolic Diameter PLAX 4.2 cm 4.2 - 5.9 / 3.9 - 5.3 cm LV Systolic Diameter PLAX 3.2 cm 2.1 - 4.0 cm LV Fractional Shortening PLAX 23.8 % 25 - 46 % LV Ejection Fraction 2D Teich 47.9 % IVS Diastolic Thickness 1.0 cm LVPW Diastolic Thickness 1.2 cm LV Relative Wall Thickness 0.5 RV Internal Dim ED PLAX 2.8 cm 1.9 - 3.8 cm LVOT Diameter 2.1 cm Aortic Root Diameter 3.4 cm LA Systolic Diameter LX 3.3 cm 3.0 - 4.0 / 2.7 - 3.8 cm Ascending Aorta Diameter 3.2 cm DOPPLER AV Peak Velocity 91.7 cm/s AV Peak Gradient 3.4 mmHg AV Mean Velocity 63.5 cm/s AV Mean Gradient 2.0 mmHg AV Velocity Time Integral 16.1 cm LVOT Peak Velocity 55.1 cm/s LVOT Peak Gradient 1.2 mmHg LVOT Mean Velocity 32.8 cm/s LVOT Mean Gradient 1.0 mmHg LVOT Velocity Time Integral 7.5 cm LVOT Stroke Volume 25.9 cm AV Area Cont Eq vti 1.6 cm AV Area Cont Eq pk 2.1 cm Mitral E Point Velocity 144.0 cm/s MV Deceleration Time 229.0 ms TR Peak Velocity 259.0 cm/s TR Peak Gradient 26.8 mmHg Right Atrial Pressure 5.0 mmHg Pulmonary Artery Systolic Pressu 31.8 mmHg Right Ventricular Systolic Press 31.8 mmHg PV Peak Velocity 109.0 cm/s PV Peak Gradient 4.8 mmHg PV Mean Velocity 64.0 cm/s PV Mean Gradient 2.0 mmHg PV Velocity Time Integral 20.3 cm
[2016-08-04 00:11] VITALS: BP 118/68
[2016-08-04 07:51] VITALS: BP 120/70
--- NOTE | 2016-08-04 08:17 | PN- Housestaff ---
FOZIA CORRALES,PREETHI 08/04/16 0817: Subjective Follow-up For: Posterior circulation stroke Tele-Events Since Last Visit: Atrial Fibrillation 60-68bpm Subjective: I saw and examined the patient today morning He is doing better, working with physical therapy. As patient is unable to perform intensive therapy - PT suggesting STR rather than Acute rehab. Still reports nausea now and then. spoke with - agreed for STR. Review of Systems Constitutional: Reports: see HPI. Neurological/Psychological: Reports: numbness, weakness. Comments: ROS negative except the above. Objective Last 24 Hrs of Vital Signs/I&O Vital Signs Date Time Temp Pulse Resp B/P Pulse O2 O2 Flow FiO2 Ox Delivery Rate 08/04 0751 97.9 70 18 120/70 96 08/04 0011 98.0 68 18 118/68 94 Room Air 08/03 1604 98.3 78 17 123/48 95 Room Air 08/03 1316 Room Air 08/03 1003 80 140/90 08/03 1003 80 140/90 08/03 1002 80 140/90 Intake & Output 08/04 1600 08/04 0800 04 0000 Intake Total 120 480 Output Total 250 400 Balance -130 80 Intake, Oral 120 480 Number 0 Bowel Movements Output, Urine 250 400 Physical Exam General Appearance: Alert, Oriented X3, Cooperative Skin: No Rashes, No Breakdown HEENT: Atraumatic, PERRLA Neck: tightness and stiffness in the left side of the ear and neck Cardiovascular: Normal S1, Normal S2, irregularly irregular Lungs: Clear to Auscultation, Normal Air Movement Abdomen: Normal Bowel Sounds, Soft, No Tenderness Neurological: improved strength in left upper extremity. babinski postive left side. strength 2/5 on left side, 5/5 right side. slight dilatation of pupil on left side. Current Medications: Current Medications Sig/Alberto Start time Last Medication Dose Route Stop Time Status Admin Acetaminophen 500 MG Q6P PRN 08/01 0230 AC PO Aspirin Buffered 81 MG DAILY 08/03 1000 AC 08/03 PO 1002 Atorvastatin Calcium 80 MG 1700 08/03 1700 AC 08/03 PO 1810 Digoxin 0.25 MG DAILY 08/03 1000 AC 08/03 PO 1002 Docusate Sodium 100 MG DAILY 08/03 1000 AC 08/03 PO 1002 Duloxetine HCl 60 MG DAILY 08/03 1000 AC 08/03 PO 1002 Furosemide 40 MG DAILY 08/03 1000 AC 08/03 PO 1002 Gabapentin 100 MG TID 08/02 1600 AC 08/03 PO 2103 Ibuprofen 400 MG .STK-MED ONE 08/03 1010 DC PO 08/03 1011 Ibuprofen 400 MG Q6P PRN 08/01 0230 AC 08/03 PO 1013 Insulin Aspart 0 TIDAC/HS 08/01 1220 AC 08/03 SC 1810 Insulin Detemir 32 UNITS BID 08/04 1000 AC SC Insulin Detemir 28 UNITS BID 08/03 1000 DC 08/03 SC 2103 Levothyroxine Sodium 0.088 MG DAILY AC 08/03 0700 AC 08/04 PO 0627 Levothyroxine Sodium 0.1 MG DAILY AC 08/03 0700 AC 08/04 PO 0627 Lisinopril 5 MG DAILY 08/03 1000 AC 08/03 PO 1003 Metoprolol Succinate 300 MG DAILY 08/03 1000 AC 08/03 PO 1003 Ondansetron HCl 4 MG .STK-MED ONE 08/03 0825 SC IM 08/03 0826 Ondansetron HCl 4 MG Q6P PRN 08/01 2130 AC 08/03 IV 0829 Oxycodone/ 1 TAB Q6P PRN 08/01 0230 AC 08/04 Acetaminophen PO 0257 Patient Medication 1 ED .STK-MED ONE 08/03 1339 DC Teaching ED 08/03 1340 Rivaroxaban 20 MG DAILY 08/03 1000 AC 08/03 PO 1003 Senna 187 MG AT BEDTIME 08/02 2200 AC 08/03 PO 2103 Assessment/Plan Assessment: Patient is a 66-year-old gentleman with a PMH of CVA in 2013 with residual weakness of the right arm, atrial fibrillation on Xarelto, hypertension, hyperlipidemia, diabetes, hypothyroidism who is BIBA after feeling weakness and numbness on the left side of the body that started around 8:40 PM on 07/31/2016, accompanied by unsteady gait and impaired coordination on the left arm. CT scan of the head in the ED was negative for intracranial pathology. However and exam patient has dystaxic and assess and dysmetria on the left upper extremity as well as new weakness in the left lower extremity. No dysarthria noted. 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 No hemorrhagic transformation/no significant mass effect. * Continue aspirin, High-dose statin - atorvastatin 80mg * Carotid Doppler ultrasound didnt reveal any significant stenosis as expected. * PT/OT/Speech therapy * Neuro recommends aggressive acute short term rehabilitation but patient is not willing so may go to STR. Atrial fibrillation * echocardiogram shows EF 55-60% * On xarelto 20mg, Digoxin 0.25mg dialy, Aspirin daily - we are continuing his home medications. * Rate control with Toprol XL 300mg daily. History of hypertension * Continue Toprol XL 300mg daily, Lisinopril 5mg daily, lasix 40mg daily. Diabetes On Insulin Humulin 80 units of 70/30 BID, Metformin, levemir 20untis at bedtime. * Started novolog insulin SS - adjusted according to his sugars * Increased levemir to 32 untis BID as his HbA1C is 11.6 and sugars are not under control with current dose. * Gabapentine 100mg TID for neuropathy. * recommended to discharge with levemir 32 units BID, current sliding scale along with Kombiglyze (home medication). Hypothyroidism * states that he is on 0.1 levothyroxine and his TSH is normal. Depression * Continue his home medicaton duloxetine 60mg daily Bowel Movement * He didnt have a bowel movement for the past 4days. We tried, Senna, Dulcolax suppository, Miralax and fleet enema. * Once he had bowel movement - all set to go. Diet * started on chopped, regular thin liquids. * Diabetic diet. Pain * mild pain pathway DVT prophylaxis * Patient is on Xarelto FULL CODE Problem List: 1. Posterior circulation stroke 2. Atrial fibrillation Pain Ratin Pain Location: left upper and lower extremity Pain Goal: Pain 4 or less Pain Plan: tylenol prn Tomorrow's Labs & Rationales: none Consulting Request: Consulting Specialty: Neurology Consulting Physician: Dr. Cuello Reason for Consult: SHIKHA FAJARDO MD 08/04/16 1233: Attending MD Review Statement Attending Statement Attending MD Statement: examined this patient, discuss w/resident/PA/[employer]DC[employer] TE[employer]ER, agreed w/resident/PA/[employer]DC[employer] TEACHER, reviewed EMR data (avail) Attending Assessment/Plan: 66M PMH CVA in 2013, atrial fibrillation on Xarelto, hypertension, hyperlipidemia, diabetes, hypothyroidism admitted for left sided weakness and numbness in the setting of suspected CVA. CT head negative. No telemetry events. MRI shows posterior CVA. Will follow neurology recommendations, continue ASA and statin, continue Xarelto, PT/OT. Will be discharged to [facility].
[2016-08-04] MEDS ORDERED: NOVOLOG100 UNIT/2 SC (11:58)
[2016-08-04] MEDS ORDERED: KOMBIGLYZE XR1 EAC1 PO (14:11)
--- NOTE | 2016-08-04 14:37 | PN- Diabetes ---
Assessment/Plan Assessment: Patient is a 66 year old male with a PMH of CVA in 2013, atrial fibrillation on Xarelto, hypertension, hyperlipidemia, diabetes type 2 noncompliance with recent of HbA1c of > 12%, hypothyroidism who was BIBA after he noticed left sided numbness and weakness of the arm and leg. His glucose levels were not controlled. Levemir was increased to 28 units twice a day; Novolog coverage before meals was adjusted. In addition, he is on Novolog coverage at bedtime. His FSGs were 188, 255, 265, 226 and 221. Patient is going to be discharged to rehab today. Plan: 1. Increase Levemir to 32 units twice a day; 2. continue the current Novolog coverage before meals and Novolog coverage at bedtime; 3. Discharge plan for DM ---Kombiglyze 08/999 mg daily; ---Levemir 32 units twice a day; ---current Novolog coverage before meals and Novolog coverage at bedtime ---monitor FSGs x 4 times a day ---f/u with his pharmacy clinical coordinator or me in office after discharge. Subjective Subjective: He is going to rehab today. Objective Last 24 Hrs of Vital Signs/I&O Vital Signs Date Time Temp Pulse Resp B/P Pulse O2 O2 Flow FiO2 Ox Delivery Rate 08/04 1118 70 120/70 08/04 1117 70 120/70 08/04 1116 70 120/70 08/04 0751 97.9 70 18 120/70 96 / 0011 98.0 68 18 118/68 94 Room Air 08/03 1604 98.3 78 17 123/48 95 Room Air Intake & Output 08/04 1600 08/04 0800 08/04 0000 Intake Total 120 480 Output Total 250 400 Balance -130 80 Intake, Oral 120 480 Number 0 Bowel Movements Output, Urine 250 400 Findings Pertinent Lab/Rashi Results: Laboratory Tests 08/03 0630 Chemistry Sodium (137 - 145 mmol/L) 136 L Potassium (3.5 - 5.1 mmol/L) 4.3 Chloride (98 - 107 mmol/L) 100 Carbon Dioxide (22 - 30 mmol/L) 27 Anion Gap (5 - 16) 9 BUN (9 - 20 mg/dL) 16 Creatinine (0.7 - 1.2 mg/dL) 0.7 Estimated GFR (>60 ml/min) > 60 BUN/Creatinine Ratio (7 - 25 %) 22.9
[2016-08-04] MEDS ORDERED: LEVEMIR100 UNIT/1 SC (16:39)
[2016-08-04 16:44] VITALS: BP 120/70
== END 2016-08-04 17:00 | DRG 65 ==
LOC: ENRESERVTM → ENRESERVDT → ERH 23:01 → ERHI 08-01 01:27 → 1NO 08-01 01:27
PROVIDERS: Emergency Medicine; Internal Medicine Hematology & Oncology; ADMIT Internal Medicine
DX: I63.9 Cerebral infarction, unspecified (principal); I69.359 Hemiplegia and hemiparesis following cerebral infarction affecting unspecified side; I48.92 Unspecified atrial flutter; E78.5 Hyperlipidemia, unspecified; I10 Essential (primary) hypertension; E03.9 Hypothyroidism, unspecified; L81.9 Disorder of pigmentation, unspecified; R27.8 Other lack of coordination; E11.9 Type 2 diabetes mellitus without complications; Z79.4 Long term (current) use of insulin; I48.2 Chronic atrial fibrillation; Z79.01 Long term (current) use of anticoagulants; R29.703 NIHSS score 3; I48.91 Unspecified atrial fibrillation; G47.33 Obstructive sleep apnea (adult) (pediatric)
CPT/HCPCS: 1NP; 70551; 82436; 93005; 93010; 93306; 96372; 97110-GO; 97112-GO; 97162-GP; 97165-GO; 97530-GO; J1644; J2405; J3490; J7508